=== PATIENT | male | born 1985 | race African-American/Black ===

== ENCOUNTER 2017-08-16 10:23 | Inpatient (IN) | payer OTHER ==
[~2017-08-16] VITALS: Ht 185.4 cm; Wt 142.5 kg
[~2017-08-16 10:23] MED LIST: ATIVAN0.5 MG PO; GABAPENTIN300 MG PO; HYDROCHLOROTH12.5 MG PO; HYDRODIURIL 112.5 M1 PO; HYDRODIURIL 112.5 MG PO; LIORESAL 10MG T10 MG PO; LISINOPRIL10 MG PO; MOTRIN 600 MG600 MG PO; NORVASC 10MG10 MG PO; PERCOCET 325 MG1 TA2 PO; QNASL80 MCG/Act NASB; ZITHROMAX TRI-500 MG PO
--- NOTE | 2017-08-16 11:01 | ED CARDIAC/CP/PALPITATIONS ---
History of Present Illness General Chief Complaint: Chest Pain Stated Complaint: CP Source: patient Exam Limitations: no limitations Vital Signs & Intake/Output Vital Signs & Intake/Output Vital Signs Date Time Temp Pulse Resp B/P B/P Pulse O2 O2 Flow FiO2 Mean Ox Delivery Rate 08/16 1358 98.4 116 20 162/115 08/16 1254 98.8 116 18 172/122 98 Room Air 08/16 1200 82 18 188/118 98 Room Air Room Air 08/16 1140 73 18 178/106 98 Room Air Room Air 08/16 1126 989 Room Air Room Air 08/16 1125 96.1 73 18 185/125 08/16 1120 96.1 130 20 213/140 08/16 1120 78 18 185/125 97 Room Air Room Air 08/16 1037 96.1 130 20 213/140 98 Room Air Allergies Coded Allergies: NO KNOWN ALLERGIES (10/13/14) Reconcile Medications Amlodipine (Norvasc 10MG) 10 MG TABLET 1 TAB PO DAILY HYPERTENSION Amlodipine (Norvasc 10MG) 10 MG TABLET 1 TAB PO QHS HYPERTENSION Baclofen (Lioresal) 10 MG TABLET 1 TAB PO TIDPRN PRN muscle strain Hydrochlorothiazide (Hydrodiuril 12.5 MG Tab) 12.5 MG CAPSULE 1 CAP PO DAILY HYPERTENSION Hydrochlorothiazide 12.5 MG CAPSULE 1 TAB PO DAILY HYPERTENSION Ibuprofen (Motrin 600 MG Tab) 600 MG TABLET 1 TAB PO Q6P PRN PAIN Lisinopril 10 MG TABLET 1 TAB PO DAILY HYPERTENSION Lisinopril 10 MG TABLET 1 TAB PO DAILY HYPERTENSION OXYCODONE HCL/ACETAMINOPHEN (Percocet 5-325 MG Tablet) 325 MG/5 MG TAB 1-2 TAB PO Q4-6 PRN PRN PAIN Triage Note: PT TO ED C/O HEART PALPITATIONS AND DIZZINESS SINCE LAST NIGHT. HAS NOT BEEN TAKING BP MEDS FOR AT LEAST 1 YEAR. BP 213/140. STATES HE WAS DRINKING HEAVILY UP UNTIL SATURDAY. C/O SLIGHT C/P. Triage Nurses Notes Reviewed? yes Onset: Abrupt Duration: day(s): (1) Timing: recent history Quality/Severity: moderate, severe Radiation: no radiation HPI: 32-year-old male comes into the emergency room for further evaluation of chest pain tightness shortness of breath and alcohol withdrawal. Patient reports that he has a history of alcohol withdrawal and alcohol withdrawal seizure. He is been drinking heavily again for the past month. He was sober for about a year. He denies any illicit drug use. He reports last night he started to experience heart palpitations and chest tightness and difficulty breathing. His symptoms got progressively worse. (Alexis Rivera) Past History Travel History Traveled to [place] past 21 day No Medical History Any Pertinent Medical History? 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 No (Alexis Rivera) Review of Systems Review of Systems Constitutional: Reports: no symptoms. EENTM: Reports: no symptoms. Respiratory: Reports: see HPI. Cardiovascular: Reports: see HPI. GI: Reports: no symptoms. Genitourinary: Reports: no symptoms. Musculoskeletal: Reports: no symptoms. Skin: Reports: no symptoms. Neurological/Psychological: Reports: see HPI. Hematologic/Endocrine: Reports: no symptoms. Immunologic/Allergic: Reports: no symptoms. All Other Systems: Reviewed and Negative (Alexis Rivera) Physical Exam Physical Exam General Appearance: well developed/nourished, alert, awake Head: atraumatic Eyes: Bilateral: normal appearance. Ears, Nose, Throat: normal ENT inspection, hearing grossly normal Neck: normal inspection Respiratory: normal breath sounds, no respiratory distress Cardiovascular: regular rate/rhythm, tachycardia Back: normal inspection Extremities: normal inspection Neurologic/Psych: awake, alert, oriented x 3 Skin: intact, normal color Core Measures ACS in differential dx? Yes CVA/TIA Diagnosis No Sepsis Present: No Sepsis Focused Exam Completed? No (Alexis Rivera) Progress Differential Diagnosis: AMI, aortic dissection, hyperthyroid, musculoskeletal pain, myocarditis, pancreatitis, pericarditis, pneumonia, pneumothorax, pulmonary embolism, PUD/GERD, respiratory failure, unstable angina Plan of Care: Orders Procedure Date/time Status Heart Healthy Diet 08/16 D Active ED Holding Orders 08/16 1415 Active Admit to inpatient 08/16 1415 Active Vital Signs 08/16 1415 Active Code Status 08/16 1415 Active CIWA 08/16 1101 Active URINE DRUGS OF ABUSE 08/16 1101 Active TROPONIN LEVEL 08/16 1101 Complete PARTIAL THROMBOPLASTIN TIME 08/16 1101 Complete PROTHROMBIN TIME 08/16 1101 Complete ETHANOL 08/16 1101 Complete D-DIMER 08/16 1101 Complete COMPREHENSIVE METABOLIC PANEL 08/16 1101 Complete CBC WITHOUT DIFFERENTIAL 08/16 1101 Complete EKG 08/16 1024 Active Current Medications Sig/Tasha Start time Last Medication Dose Stop Time Status Admin Hydrochlorothiazide 12.5 MG ONCE ONE 08/16 1430 UNVr (Hydrodiuril) 08/16 1431 Lisinopril 10 MG ONCE ONE 08/16 1430 UNVr (Prinivil) 08/16 1431 Amlodipine Besylate 10 MG ONCE ONE 08/16 1415 UNVr (Norvasc) 08/16 1416 Laboratory Tests 08/16/17 1105: Anion Gap 15, Estimated GFR > 60, BUN/Creatinine Ratio 12.0, Glucose 108 H, Calcium 9.0, Total Bilirubin 2.7 H, AST 108 H, ALT 136 H, Alkaline Phosphatase 101, Troponin I < 0.01, Total Protein 9.4 H, Albumin 4.6, Globulin 4.8 H, Albumin/Globulin Ratio 1.0 L, PT 12.3, INR 1.13, APTT 28, D-Dimer High Sensitivty 253 H, CBC w Diff NO MAN DIFF REQ, RBC 5.62, MCV 85.6, MCH 29.6, MCHC 34.6, RDW 12.3, MPV 9.2, Gran % 81.9 H, Lymphocytes % 11.2 L, Monocytes % 5.4, Eosinophils % 0.8, Basophils % 0.7, Absolute Granulocytes 4.2, Absolute Lymphocytes 0.6 L, Absolute Monocytes 0.3, Absolute Eosinophils 0, Absolute Basophils 0, Serum Alcohol < 10.0 Diagnostic Imaging: Viewed by Me: Radiology Read, CT Scan. Discussed w/RAD: Radiology Read, CT Scan. Radiology Impression: PATIENT: KATHI RODRIGUEZ PRESENT AGE: 32 PATIENT ACCOUNT NO: [id number] : 86 LOCATION: [facility] ORDERING PHYSICIAN: Alexis MAGAÑA SERVICE DATE: 08/16/17 EXAM TYPE : CAT - CTA CHEST-PULMONARY EMBOLISM EXAMINATION: CT ANGIOGRAM OF THE CHEST WITH AND WITHOUT CONTRAST (CT PULMONARY ANGIOGRAM FOR PE) CLINICAL INFORMATION: Shortness of breath, tachycardia. Question PE. COMPARISON: Chest x-ray from TECHNIQUE: Prior to contrast administration, noncontrast localization images were obtained. Subsequently, multidetector volumetric imaging was performed from the thoracic inlet to below the diaphragms following the administration of 95 mL Optiray 320 intravenous contrast. No contrast reaction reported. Sagittal, coronal, and MIP oblique sagittal reformatted images were obtained on the CT workstation, uploaded to PACS, and reviewed. Total exam dose- length product 595 mGy-cm. FINDINGS: QUALITY OF STUDY/CONTRAST BOLUS: Satisfactory PULMONARY ARTERIES: No central or segmental pulmonary emboli. THORACIC AORTA: No aneurysm or dissection. LUNG: No consolidation. There is mild breathing artifact. There is a 3 mm pulmonary nodule in the lingula (series 2 image 323). In the left upper lobe there is an oval 9 mm density which appears closely connected to a subsegmental pulmonary artery and a subsegmental pulmonary vein (see for example series 2 images 250-265). This is similar attenuation to the vasculature, and no definitive calcification is visualized on prior chest x-ray. There is a punctate calcified granuloma in the right lower lobe. PLEURA: No pleural effusion or pneumothorax. MEDIASTINUM: Normal heart size. No pericardial effusion. No hilar or mediastinal lymphadenopathy. No evidence of septal bowing or right heart strain. CHEST WALL/AXILLA: No axillary or internal mammary lymphadenopathy. OSSEOUS STRUCTURES: No acute or suspicious osseous abnormality. UPPER ABDOMEN: Unremarkable. No reflux of contrast into the hepatic veins to suggest elevated right heart pressures. IMPRESSION: No evidence of central or segmental pulmonary embolism. A 9 mm dense structure in the periphery of the left upper lobe, closely opposed to a subsegmental pulmonary artery and vein. This may reflect a small arteriovenous malformation; the differential would include a coarse calcification, although no calcification is visualized on chest x-ray. Suggest correlation with noncontrast CT to conclusively differentiate between these two possibilities. A calcified granuloma in the right lower lobe. A 3 mm noncalcified nodule in the lingula. VTE: negative DICTATED BY: Walter Parnell MD DATE/TIME DICTATED:08/16/171300 QUALITY SUPERVISOR:JENNIFER DATE/TIME TRANSCRIBED:08/16/171300 CONFIDENTIAL, DO NOT COPY WITHOUT APPROPRIATE AUTHORIZATION. <Electronically signed in Other Vendor System> SIGNED BY: Walter Parnell MD 08/16/17 1320, PATIENT: KATHI RODRIGUEZ PRESENT AGE: 32 PATIENT ACCOUNT NO: [id number] : 86 LOCATION: [facility] ORDERING PHYSICIAN: Alexis MAGAÑA SERVICE DATE: 08/16/17 EXAM TYPE: RAD - XRY-CHEST XRAY, TWO VIEWS EXAMINATION: XR CHEST CLINICAL INFORMATION: Chest pain COMPARISON: Chest x-ray most recent prior dated 10/21/2005 TECHNIQUE: 2 views of the chest were obtained. FINDINGS: Low lung volumes. No acute airspace disease. Cardiomediastinal silhouette is within normal limits. Bony thorax is intact. IMPRESSION: No acute pulmonary disease. DICTATED BY: Rosario Fox MD DATE/TIME DICTATED:08/16/171208 QUALITY SUPERVISOR:JENNIFER DATE/TIME TRANSCRIBED:1208 CONFIDENTIAL, DO NOT COPY WITHOUT APPROPRIATE AUTHORIZATION. < Electronically signed in Other Vendor System> SIGNED BY: Rosario Fox MD 08/16/17 1214 Initial ED EKG: normal sinus rhythm, rate (118), nonspecific ST T wave chg (Alexis Rivera) Departure Departure Disposition: STILL A PATIENT Condition: Stable Clinical Impression Primary Impression: Alcohol withdrawal Secondary Impressions: Chest pain syndrome, Hypertensive urgency Referrals: Patient Has No Primary Care Dr (PCP/Family) Departure Forms: Customer Survey General Discharge Information Admission Note Spoke With: Gus Ren MD Documentation of Exam: Documentation of any treatments & extenuating circumstances including Concerns Regarding Discharge (functional status, medication knowledge or non-compliance, living conditions, etc.) that warrant an admission rather than observation: Patient will require cardiac telemetry. Serial troponins. IV Ativan. Blood pressure control. Possibly cardiac consultation. High risk. ciwa scores 14 and 12. History of alcohol withdrawal seizure. Medically not safe for discharge. Patient will require greater than 72 hours of care. (Alexis Rivera) PA/SENIOR LINUX SYSTEMS ADMINISTRATOR Co-Sign Statement Statement: ED Attending supervision documentation- [X] I saw and evaluated the patient. I have also reviewed all the pertinent lab results and diagnostic results. I agree with the findings and the plan of care as documented in the PA's/SENIOR LINUX SYSTEMS ADMINISTRATOR's documentation. [X] I have reviewed the ED Record and agree with the PA's/SENIOR LINUX SYSTEMS ADMINISTRATOR's documentation. [] Additions or exceptions (if any) to the PAs/SENIOR LINUX SYSTEMS ADMINISTRATOR's note and plan are summarized below: [Patient presents to the emergency department requesting alcohol detox. Patient found to be hypertensive. Patient states that he has not taken his antihypertensives in over a year. Patient has an elevated CIWA score. Patient will need close blood pressure monitoring. He does have intermittent chest pain so he should have a cardiology consultation.] (Landy MEEK,Samir Rod) Critical Care Note Critical Care Note Critical Care Time: 30-74 min (45) (Alexis Rivera)
[2017-08-16 11:20] VITALS: BP 213/140
[2017-08-16 11:31] LABS: ABSOLUTE BASOPHIL COUNT 0 /CUMM (0.0-0.2); ABSOLUTE EOSINOPHIL COUNT 0 /CUMM (0.0-0.7); ABSOLUTE GRANULOCYTE CT 4.2 /CUMM (1.4-6.5); ABSOLUTE LYMPH COUNT 0.6 /CUMM (1.2-3.4); ABSOLUTE MONOCYTE COUNT 0.3 /CUMM (0.10-0.60); BASOPHIL % 0.7 % (0.0-2.0); EOSINOPHIL % 0.8 % (0-5); GRANULOCYTE % 81.9 % (42.2-75.2); HEMATOCRIT 48.2 % (42-52); MEAN CORPUSCULAR HGB 29.6 PG (27.0-31.0); MEAN CORPUSCULAR HGB CONC 34.6 G/DL (33.0-37.0); MEAN CORPUSCULAR VOLUME 85.6 FL (80.0-94.0); MEAN PLATELET VOLUME 9.2 FL (7.4-10.4); PLATELET COUNT 207 /CUMM (130-400); RBC DISTRIBUTION WIDTH 12.3 % (11.5-14.5); RED BLOOD CELL CT 5.62 /CUMM (4.70-6.10); WHITE BLOOD CELL COUNT 5.1 /CUMM (4.8-10.8)
[2017-08-16 11:36] LABS: PT 12.3 SEC (9.4-12.5); PTT 28 SEC (25-37)
--- NOTE | 2017-08-16 12:14 | RADIOLOGY REPORT ---
EXAMINATION: XR CHEST CLINICAL INFORMATION: Chest pain COMPARISON: Chest x-ray most recent prior dated 10/21/2005 TECHNIQUE: 2 views of the chest were obtained. FINDINGS: Low lung volumes. No acute airspace disease. Cardiomediastinal silhouette is within normal limits. Bony thorax is intact. IMPRESSION: No acute pulmonary disease.
--- NOTE | 2017-08-16 13:20 | CT SCAN REPORT ---
EXAMINATION: CT ANGIOGRAM OF THE CHEST WITH AND WITHOUT CONTRAST (CT PULMONARY ANGIOGRAM FOR PE) CLINICAL INFORMATION: Shortness of breath, tachycardia. Question PE. COMPARISON: Chest x-ray from 08/16/2017 TECHNIQUE: Prior to contrast administration, noncontrast localization images were obtained. Subsequently, multidetector volumetric imaging was performed from the thoracic inlet to below the diaphragms following the administration of 95 mL Optiray 320 intravenous contrast. No contrast reaction reported. Sagittal, coronal, and MIP oblique sagittal reformatted images were obtained on the CT workstation, uploaded to PACS, and reviewed. Total exam dose-length product 595 mGy-cm. FINDINGS: QUALITY OF STUDY/CONTRAST BOLUS: Satisfactory PULMONARY ARTERIES: No central or segmental pulmonary emboli. THORACIC AORTA: No aneurysm or dissection. LUNG: No consolidation. There is mild breathing artifact. There is a 3 mm pulmonary nodule in the lingula (series 2 image 323). In the left upper lobe there is an oval 9 mm density which appears closely connected to a subsegmental pulmonary artery and a subsegmental pulmonary vein (see for example series 2 images 250-265). This is similar attenuation to the vasculature, and no definitive calcification is visualized on prior chest x-ray. There is a punctate calcified granuloma in the right lower lobe. PLEURA: No pleural effusion or pneumothorax. MEDIASTINUM: Normal heart size. No pericardial effusion. No hilar or mediastinal lymphadenopathy. No evidence of septal bowing or right heart strain. CHEST WALL/AXILLA: No axillary or internal mammary lymphadenopathy. OSSEOUS STRUCTURES: No acute or suspicious osseous abnormality. UPPER ABDOMEN: Unremarkable. No reflux of contrast into the hepatic veins to suggest elevated right heart pressures. IMPRESSION: No evidence of central or segmental pulmonary embolism. A 9 mm dense structure in the periphery of the left upper lobe, closely opposed to a subsegmental pulmonary artery and vein. This may reflect a small arteriovenous malformation; the differential would include a coarse calcification, although no calcification is visualized on chest x-ray. Suggest correlation with noncontrast CT to conclusively differentiate between these two possibilities. A calcified granuloma in the right lower lobe. A 3 mm noncalcified nodule in the lingula. VTE: negative
[2017-08-16 13:58] VITALS: BP 162/115
--- NOTE | 2017-08-16 14:41 | History & Physical ---
[facility] 1436: General Information and HPI MD Statement: I have seen and personally examined KATHI RODRIGUEZ and documented this H&P. The patient is a 32 year old M who presented with a patient stated chief complaint of chest pain, palpitation, shortness of breath []. Source of Information: patient, old records Exam Limitations: no limitations History of Present Illness: 32 YO M ex-smoker (quit 5 yrs back, 1pack/d) with past medical history of hypertension noncompliant to medication, alcohol abuse, obstructive sleep apnea and anxiety came to the ED with chief complaint of chest tightness, palpitation and shortness of breath since last night. Patient reported that he was in his usual state of health since last night when he suddenly noticed having chest tightness 7/10 in the center of the chest, continuous, radiating to both arms, no aggravating or relieving factors associated with palpitations and intermittent shortness of breath. According to patient he couldn't sleep last night because of chest tightness and palpitations. This morning he also reported having sweating and chills. Patient denied any fever, sick contacts, loss of consciousness, tick bite, cough , sputum, exertional dyspnea, pain during exertion, orthopnea, trauma to chest, abdominal pain, constipation, diarrhea and dysuria. Last time patient was admitted in [facility] in 2013 for alcohol detox after that he remained sober for 1 year but again started to drink. According to patient he is drinking 1 rump everyday. According to patient he was admitted he was admitted with alcohol induced seizures in the past. He never been intubated. According to the patient he is not taking any hypertension medications for last 1 year and he is not seeing any primary care physician for long time. He attributes his chest pain to anxiety and stress related to work. ED course: Vitals: Temperature 96.1, blood pressure 213/140, pulse 130, respiratory rate 20 , oxygen saturation 98% room air Labs: WBC count 5.1, hemoglobin 16.6, hematocrit 48.2, platelet count 27, sodium 136, potassium 3.9, BUN 12, creatinine 1.0, AST 108, ALT 136, glucose 108, calcium 9.0, total bilirubin 2.7, troponin less than 0.01, total protein 9.4, albumin 4.6, globulin 4.8, albumin/creatinine ratio 1.0, INR 1.13, d-dimer 253 Allergies/Medications Allergies: Coded Allergies: NO KNOWN ALLERGIES (10/13/14) Home Med list Fluticasone Propionate 50 MCG/ACTUATION SPRAY.SUSP 2 SPRAY NASB DAILY PRN ALLERGIES (Reported) Multiple Vitamin (Multivitamins) 1 EACH TABLET 1 TAB PO DAILY SUPPLEMENT ( Reported) Past History Travel History Traveled to [place] past 21 day No Medical History Neurological: NONE EENT: sinusitis Cardiovascular: hypertension Respiratory: obstructive sleep apnea Gastrointestinal: NONE Hepatic: NONE Renal: NONE Musculoskeletal: NONE Psychiatric: anxiety, ALCOHOL DEPENDENCE Endocrine: NONE Blood Disorders: NONE Cancer(s): NONE THERMODYNAMICIST/Reproductive: NONE History of MRSA: No History of VRE: No History of CDIFF: No Influenza Vaccine: 12/29/11 Surgical History Surgical History: TONSILLECTOMY Past Family/Social History Family History Relations & Conditions if any Relation not specified for: Family history not obtainable due to adoption Psychosocial History ETOH Use: heavy use Illicit Drug Use: denies illicit drug use Review of Systems Review of Systems Constitutional: Reports: chills. Denies: fever, weakness. EENTM: Reports: no symptoms. Cardiovascular: Reports: chest pain, palpitations. Denies: syncope. Respiratory: Reports: short of breath. Denies: cough, orthopnea, sputum production. GI: Denies: abdominal pain, constipation, diarrhea, nausea. Genitourinary: Reports: no symptoms. Musculoskeletal: Reports: no symptoms. Neurological/Psychological: Reports: no symptoms. Exam & Diagnostic Data Last 24 Hrs of Vital Signs/I&O Vital Signs Date Time Temp Pulse Resp B/P B/P Pulse O2 O2 Flow FiO2 Mean Ox Delivery Rate 08/16 1358 98.4 116 20 162/115 08/16 1254 98.8 116 18 172/122 98 Room Air 08/16 1200 82 18 188/118 98 Room Air Room Air 08/16 1140 73 18 178/106 98 Room Air Room Air 08/16 1126 989 Room Air Room Air 08/16 1125 96.1 73 18 185/125 08/16 1120 96.1 130 20 213/140 08/16 1120 78 18 185/125 97 Room Air Room Air 08/16 1037 96.1 130 20 213/140 98 Room Air Intake & Output 08/16 1600 08/16 0800 04/20 0000 Intake Total Output Total Balance Patient 330 lb Weight Weight Estimated Measurement Method Physical Exam General Appearance Alert, Oriented X3, Cooperative Skin No Rashes Skin Temp/Moisture Exam: Warm/Dry Sepsis Skin Exam (color): Normal for Ethnicity HEENT Atraumatic, PERRLA, EOMI Neck Supple Cardiovascular Normal S1, Normal S2 Lungs Clear to Auscultation Abdomen Soft, No Tenderness Neurological Normal Speech, Strength at 5/5 X4 Ext, Normal Tone, Sensation Intact Extremities No Edema Last 24 Hrs of Labs/Sage: Laboratory Tests 08/16/17 1105: Anion Gap 15, Estimated GFR > 60, BUN/Creatinine Ratio 12.0, Glucose 108 H, Calcium 9.0, Total Bilirubin 2.7 H, AST 108 H, ALT 136 H, Alkaline Phosphatase 101, Troponin I < 0.01, Total Protein 9.4 H, Albumin 4.6, Globulin 4.8 H, Albumin/Globulin Ratio 1.0 L, PT 12.3, INR 1.13, APTT 28, D-Dimer High Sensitivty 253 H, CBC w Diff NO MAN DIFF REQ, RBC 5.62, MCV 85.6, MCH 29.6, MCHC 34.6, RDW 12.3, MPV 9.2, Gran % 81.9 H, Lymphocytes % 11.2 L, Monocytes % 5.4, Eosinophils % 0.8, Basophils % 0.7, Absolute Granulocytes 4.2, Absolute Lymphocytes 0.6 L, Absolute Monocytes 0.3, Absolute Eosinophils 0, Absolute Basophils 0, Serum Alcohol < 10.0 Assessment/Plan Assessment: 32 YO M ex-smoker (quit 5 yrs back, 1pack/d) with past medical history of hypertension noncompliant to medication, alcohol abuse, obstructive sleep apnea and anxiety came to the ED with chief complaint of chest tightness, palpitation and shortness of breath since last night. We will admit the patient to telemetry floor for following problems: Chest pain: -We will do serial Trop and EKG to rule out any ischemic cardiac injury. -Monitor him on telemetry floor for any arrhythmias or blocks. -Start aspirin and atorvastatin -Check TSH, free T4. -Cardiology consult -Echocardiogram in a.m. Hypertensive urgency: -We will continue his amlodipine, hydrochlorothiazide and lisinopril -Will not drop his blood pressure more than 25% from presentation. -Monitor vitals Alcohol withdrawal: -We'll treat him with CIWA protocol -Ativan 2 mg every 6 hourly -Supplement thiamine, vit Vitamin B12 and folic acid Transaminitis: -Probably due to alcohol induced -Monitor LFTs -Ultrasound right upper quadrant if needed. DVT prophylaxis: Mechanical and subcutaneous heparin CODE STATUS: Full code As Ranked By This Provider Problem List: 1. Hypertensive urgency 2. Transaminitis 3. Alcohol withdrawal Core Measures/Misc (01/13) Acute Coronary Syndrome ACS Diagnosis: No Congestive Heart Failure Congestive Heart Failure Diagnosis No Cerebrovascular Accident CVA/TIA Diagnosis: No VTE (View Protocol) VTE Risk Factors Other No Mechanical VTE Prophylaxis d/t N/A MechProphylax Ordered No VTE Pharm Prophylaxis d/t NA PharmProphylax ordered Sepsis (View protocol) Sepsis Present: No Dickson Espinoza MD 08/16/17 1444: Resident Review Statement Other Findings: History of Present Illness 32 year old man with past medical history of hypertension and alcohol abuse seen for evaluation of chest tightness and palpitations. Patient reports he was watching television last evening when around 7-8 PM he developed sudden onset heart palpitations with associated chest "tightness" characterize as a 7-8/10 pain with occasional radiation to his bilateral arms and associated cold sweats, lightheadedness, blurred vision, abdominal cramping, headache, and shortness breath. The pain was waxing/waning without any aggravating or alleviating factors. He had decreased oral intake since Saturday because of feeling ill. He reports a heavy alcohol history drinking up to "one bottle of from" per day with his last drink on Saturday. He is reportedly supposed to be on "blood pressure medication" but hasn't taken it in "a long time". Review of systems He otherwise denies any nausea, vomiting, or bowel/bladder complaints. Past medical history-as above, additionally seasonal allergies Allergies - NKDA Medications -Flonase, reportedly supposed to be on lisinopril/Norvasc/HCTZ hypertension Surgery - Tonsillectomy 5 years ago Family history -patient is adopted Social history Patient reports being admitted to the hospital for alcohol detox approximately 4 years ago; he did not require admission to the ICU or an Ativan drip. He denies history of alcohol withdrawal seizures. He was reportedly clean for several years until he started drinking heavily about 2 months ago now drinking about one bottle of from per day. 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 He lives at home with his 3 children and reports a good environment. Currently denies any SI/HI. Patient is a previous smoker of one pack per day quitting about 5 years ago. Objective Vital signs -Temp 96.1-98.4, HR 73-1:30, RR 18-20, SBP 162-213, O2 97-98% on room air Physical exam -Gen.: Well-developed, well-nourished young -[place] man in no acute distress -HEENT: NCAT, PERRLA, EOMI, anicteric sclera, moist mucous membranes -Neck: Supple, no JVD or carotid bruit, trachea midline -Cardio: Normal S1/S2 without murmurs/gallops/rubs; regular rate and rhythm -Pulmonary: Clear to auscultation bilaterally -Abdomen: Soft, nontender, nondistended, bowel sounds intact -Neuro: Awake and alert, cranial nerves II through XII grossly intact, strength 5/54, speech/sensation/coordination/gait intact, face symmetric -Extremities: Normal pulses Labs/imaging/studies -CBC: WBC 5.1, hemoglobin 16.6, hematocrit 48.2, platelet 207 -BMP: Sodium 136, potassium 3.9, chloride 92, CO2 29, urea 12, creatinine 1.0, anion gap 15, glucose 108 -LFT: Total bilirubin 2.7, AST 108, ALT 136, ALP 101 -Miscellaneous never: D-dimer 253, INR 1.13, EtOH <10,troponin I <0.01 -EKG: Sinus tachycardia with PACs -CXR: No acute pulmonary disease -CTA with PE protocol: * No evidence of central or segmental pulmonary embolism. * A 9 mm dense structure in the periphery of the left upper lobe, closely opposed to a subsegmental pulmonary artery and vein. This may reflect a small arteriovenous malformation; the differential would include a coarse calcification, although no calcification is visualized on chest x-ray. Suggest correlation with noncontrast CT to conclusively differentiate between these two possibilities. * A calcified granuloma in the right lower lobe. A 3 mm noncalcified nodule in the lingula. Assessment 32-year-old man with history of EtOH withdrawal/abuse and hypertension seen for evaluation of acute onset heart palpitations with chest pain. It is unclear why patient had decreased oral intake and felt "ill was "over the past couple of days causing him to stop drinking. It is possible that patient's heart palpitations and symptoms are due to EtOH withdrawal however he has no tremor or other obvious signs of withdrawal other than hypertension. Patient is noncompliant with his antihypertensive regimen and presents with hypertensive urgency without any neurologic signs or end organ damage. Patient is to be admitted to the telemetry floor for cardiology consult, serial troponin/EKG, and telemetry monitoring. He is to be continued on a standing dose of oral Ativan with additional doses as needed. Problem List -Chest pain with palpitations -EtOH withdrawal / dependence -Sinus tachycardia -Transaminitis -Hypertensive Urgency -History of Hypertension -Anxiety / Depression Plan -Admit to telemetry -Telemetry monitoring -CIWA -Ativan 2 mg PO Q6H -Ativan PRN per CIWA -Thiamine / Folate / Multivitamin -Amlodipine 10 mg by mouth daily -Lisinopril 10 mg by mouth daily -Hydrochlorothiazide 12.5 mg by mouth daily -Cardiology consult for chest pain -Social work consult for alcohol abuse -Check magnesium, TSHR -Trend troponin/EKG until peak or 3 negative sets -Pain control with acetaminophen -Regular diet -DVT prophylaxis with subcutaneous heparin -Full code
[2017-08-16 15:24] VITALS: BP 170/117
[2017-08-16] MEDS ORDERED: MULTIVITAMINS1 EAC9 PO (15:32)
[2017-08-16] MEDS ORDERED: FLUTICASONE PRO16 GM NASB (15:32)
--- NOTE | 2017-08-16 15:45 | Admission Certification ---
Admission Certification Certification Statement - As attending physician, I certify that at the time of - admission, based on clinical presentation, severity of - symptoms, need for further diagnostic testing and - therapeutic interventions, and risk of adverse outcomes - without in-hospital treatment, in my clinical assessment, - this patient requires an acute hospital stay for a minimum - of two nights or longer. I have also considered psychsocial - factors such as support system, advanced age, financial - issues, cognitive issues, and failed out-patient treatments, - past re-admission history, safety of patient, and lack of - compliance as applicable. Specific rationale supporting this admission is: Chest pain and alcohol withdrawal
--- NOTE | 2017-08-16 16:06 | PN- Att Addend ---
Attending Addendum Attending Brief Note Patient seen and examined. Plan of care discussed with the medical team and the patient. Available lab work and radiology test reports were reviewed. In summary this is a 32-year-old male alcoholic with past medical history of hypertension noncompliant to medication, alcohol abuse, obstructive sleep apnea and anxiety came to the ED with symptoms of for feeling no worse, sweating, chest tightness with radiation to right arm. In ED he was found to have elevated blood pressure. He was given Ativan which helped him calm down and also the blood pressure came down. Exam: General: Patient awake alert oriented without any distress CVS: S1 plus S2 without any murmur or gallops Chest: Few scattered crepitation without any wheeze. There is no respiratory distress. 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 SPECIALIST: Awake alert oriented without any focal neuro deficit and follows commands appropriately Extremities: No edema; no clubbing or cyanosis noted Assessment * Alcohol abuse * Alcohol withdrawal * Transaminitis and elevated bilirubin likely due to alcohol abuse * Sleep apnea * Rule out AK and chest pain Plan * Admit to telemetry * Start Ativan 2 mg by mouth every 6 and CIWA protocol * Start aspirin and Lipitor; rule out AK protocol; a pericardial the consult repeat EKG; Vital Signs Date Time Temp Pulse Resp B/P B/P Pulse O2 O2 Flow FiO2 Mean Ox Delivery Rate 08/16 1524 110 20 170/117 99 Room Air 08/16 1430 98.4 116 20 162/115 08/16 1430 98.4 116 20 162/115 08/16 1358 98.4 116 20 162/115 08/16 1254 98.8 116 18 172/122 98 Room Air 08/16 1200 82 18 188/118 98 Room Air Room Air 08/16 1140 73 18 178/106 98 Room Air Room Air 08/16 1126 989 Room Air Room Air 08/16 1125 96.1 73 18 185/125 08/16 1120 96.1 130 20 213/140 08/16 1120 78 18 185/125 97 Room Air Room Air 08/16 1037 96.1 130 20 213/140 98 Room Air Last 24 Hours I&Os 08/16 1600 08/16 0800 08/16 0000 Intake Total 100 Output Total Balance 100 Intake, Oral 100 Patient 330 lb Weight Weight Estimated Measurement Method Laboratory Tests 08/16/17 1105: Anion Gap 15, Estimated GFR > 60, BUN/Creatinine Ratio 12.0, Glucose 108 H, Calcium 9.0, Magnesium Pending, Total Bilirubin 2.7 H, AST 108 H, ALT 136 H, Alkaline Phosphatase 101, Troponin I < 0.01, Total Protein 9.4 H, Albumin 4.6, Globulin 4.8 H, Albumin/Globulin Ratio 1.0 L, TSH &T3 &Free T4 Intrp Pending, PT 12.3, INR 1.13, APTT 28, D-Dimer High Sensitivty 253 H, CBC w Diff NO MAN DIFF REQ, RBC 5.62, MCV 85.6, MCH 29.6, MCHC 34.6, RDW 12.3, MPV 9.2, Gran % 81.9 H, Lymphocytes % 11.2 L, Monocytes % 5.4, Eosinophils % 0.8, Basophils % 0.7, Absolute Granulocytes 4.2, Absolute Lymphocytes 0.6 L, Absolute Monocytes 0.3, Absolute Eosinophils 0, Absolute Basophils 0, Serum Alcohol < 10.0 Orders Procedure Date/time Status MAGNESIUM 08/17 0600 Active CBC WITHOUT DIFFERENTIAL 08/17 0600 Active BASIC ELECTROLYTES PLUS BUN&CR 08/17 0600 Active Heart Healthy Diet 08/16 D Active TROPONIN LEVEL 08/16 2300 Active EKG 08/16 2300 Active TROPONIN LEVEL 08/16 1700 Active EKG 08/16 1700 Active Pathway - chart 08/16 1542 Active House Staff 08/16 1542 Active SOCIAL WORK CONSULT 08/16 1542 Active Intake & Output 08/16 1443 Active Patient Data 08/16 1422 Active ED Holding Orders 08/16 1415 Active Admit to inpatient 08/16 1415 Active Vital Signs 08/16 1415 Active Code Status 08/16 1415 Active TSH REFLEX 08/16 1105 Active MAGNESIUM 08/16 1105 Active CIWA 08/16 1101 Active URINE DRUGS OF ABUSE 08/16 1101 Active TROPONIN LEVEL 08/16 1101 Active PARTIAL THROMBOPLASTIN TIME 08/16 1101 Complete PROTHROMBIN TIME 08/16 1101 Complete ETHANOL 08/16 1101 Active D-DIMER 08/16 1101 Complete COMPREHENSIVE METABOLIC PANEL 08/16 1101 Active CBC WITHOUT DIFFERENTIAL 08/16 1101 Complete EKG 08/16 1024 Active Lab Add-on Test 08/16 UNK Active VTE Mechanical Prophylaxis 08/16 UNK Active Activity/Ambulation 08/16 UNK Active His EKG did not show any acute ST segment elevation. few PVCs were noted. CTA No evidence of central or segmental pulmonary embolism. A 9 mm dense structure in the periphery of the left upper lobe, closely opposed to a subsegmental pulmonary artery and vein. This may reflect a small arteriovenous malformation; the differential would include a coarse calcification, although no calcification is visualized on chest x-ray. Suggest correlation with noncontrast CT to conclusively differentiate between these two possibilities. A calcified granuloma in the right lower lobe. A 3 mm noncalcified nodule in the lingula. VTE: negative CXR- no acute process
--- NOTE | 2017-08-16 17:17 | PN- Student ---
Subjective Subjective: HPI: Between 7:00-8:00pm of the day [employer] patient woke up in the middle of the night with sweating, palpitations, and chest tightness. Pain was 7/10, located in the middle of the chest, constant with radiation to both arms. He also mentioned the feeling of having the heart in the throat. Patient reported having this symptoms 4 years ago for which he was told to follow up with a corner brace block machine operator but he did not. Patient has an history of alcohol abuse for which he is been trying to quit. He was sober for couple of years, but started drinking again about 2 month ago because of stress. 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 At this point patient mentioned drinking a bottle of rum everyday. Hospital course: Patient was admitted with a chief complain of chest pain with radiation to both arms. In ED he was found to have elevated blood pressure. He was given Ativan which helped him calm down and also the blood pressure came down. PMHX: alcohol abuse PSHx: tonsilectomy (2012) SHx: past-smoker of 1 pack a day that quit 5 years ago, drinker of one bottle of rum a day Allergies: NKA Objective Objective: Vitals: T= 98.4 HR= 116 RR= 20 BP= 162-213/106-140 PE: General= Patient alert, awake, and oriented without any distress HEENT= normocephalic, atraumatic, non-icteric sclera, moist oral mucosa CVS= normal S1 and S2 without rub or gallops . Abdomen= Soft non-tender, bowel sound present, no guarding or rebound Extremities= No edema, no clubbing or cyanosis Results Results: Laboratory Tests 08/16/17 1105: Anion Gap 15, Estimated GFR > 60, BUN/Creatinine Ratio 12.0, Glucose 108 H, Calcium 9.0, Magnesium 1.2 L, Total Bilirubin 2.7 H, AST 108 H, ALT 136 H, Alkaline Phosphatase 101, Troponin I < 0.01, Total Protein 9.4 H, Albumin 4.6, Globulin 4.8 H, Albumin/Globulin Ratio 1.0 L, Free T4 1.96, Total T3 Pending, TSH &T3 &Free T4 Intrp 6.370 H, PT 12.3, INR 1.13, APTT 28, D-Dimer High Sensitivty 253 H, CBC w Diff NO MAN DIFF REQ, RBC 5.62, MCV 85.6, MCH 29.6, MCHC 34.6, RDW 12.3, MPV 9.2, Gran % 81.9 H, Lymphocytes % 11.2 L, Monocytes % 5.4, Eosinophils % 0.8, Basophils % 0.7, Absolute Granulocytes 4.2, Absolute Lymphocytes 0.6 L, Absolute Monocytes 0.3, Absolute Eosinophils 0, Absolute Basophils 0, Serum Alcohol < 10.0 Assessment/Plan Assessment: 32 y/o M with past medical history of hypertension noncompliant to medication, alcohol abuse, obstructive sleep apnea and anxiety who came to the ED with chief complaint of chest tightness, palpitation and shortness of breath since last night. EKG showed sinus tachy. Troponin are <0.01. CXR did not showed any acute signs. CTA was performed which did not showed any evidence of PE. At this point with an negative troponin, ACS cannot be ruled out. Patient admitted to [facility] due to chest pain in the setting of possible ACS. Plan: Chest pain -F/U Trop and EKG to rule out any ischemia -Start aspirin and atorvastatin -Check TSH, free T4 -Cardiology consult -Echocardiogram in a.m. Hypertensive urgency -Cont. amlodipine, hydrochlorothiazide and lisinopril -Will not drop his blood pressure more than 25% from presentation -Monitor vitals Alcohol withdrawal -[facility] protocol -Ativan 2 mg Q6 -Supplement thiamine, vit Vitamin B12 and folic acid Transaminitis -Probably due to alcohol abuse -Monitor LFTs -US the abdomen DVT prophylaxis: Mechanical and subcutaneous heparin
--- NOTE | 2017-08-16 18:25 | Cons- Cardiology ---
General Information and HPI Consulting Request Date of Consult: 08/16/17 Requested By: Jay Henry MD Reason for Consult: Palpitations and chest pain. Source of Information: patient Exam Limitations: no limitations History of Present Illness: Mr. Eddie fang is a 32-year-old male with a history of former tobacco use, obesity, untreated obstructive sleep apnea, and untreated hypertension who presented to the ED earlier today while withdrawing from EtOH intoxication. He states that he had been sober until stress precipitated EtOH use which has been heavy since last Saturday (08/09/2017) until this past Saturday (08/14/2017) when he stopped drinking. evening he states that he began to feel "the effects" and experienced disorientation, cold sweats, and palpitations followed by "crushing", severe ( "10/10"), anterior chest discomfort with radiation down his arms, with associated diaphoresis and shortness of breath. Approximately 30 such episodes occurred over the following days lasting up to 10 minutes per episode. Several years back he had similar symptoms following EtOH withdrawal, but states he never had any type of noninvasive or invasive cardiovascular evaluation. He denies any history of dyslipidemia, diabetes mellitus, and is unaware of his family history as he and his siblings are all adopted. Allergies/Medications Allergies: Coded Allergies: NO KNOWN ALLERGIES (10/13/14) Home Med List: Fluticasone Propionate 50 MCG/ACTUATION SPRAY.SUSP 2 SPRAY NASB DAILY PRN ALLERGIES (Reported) Multiple Vitamin (Multivitamins) 1 EACH TABLET 1 TAB PO DAILY SUPPLEMENT ( Reported) Review of Systems Review of Systems: A 14 point system review was obtained and was noncontributory, other than as above. 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8 116 18 172/122 98 Room Air 08/16 1200 82 18 188/118 98 Room Air Room Air 08/16 1140 73 18 178/106 98 Room Air Room Air 08/16 1126 989 Room Air Room Air 08/16 1125 96.1 73 18 185/125 08/16 1120 96.1 130 20 213/140 08/16 1120 78 18 185/125 97 Room Air Room Air 08/16 1037 96.1 130 20 213/140 98 Room Air Intake & Output 08/16 1600 08/16 0800 08/16 0000 08/15 1600 08/15 0800 08/15 0000 Intake Total 100 Output Total Balance 100 Intake, Oral 100 Patient 330 lb Weight Weight Estimated Measurement Method Physical Exam: Well developed, obese male in no acute distress. Vital signs: See above. HEENT: Normocephalic, atraumatic, EOMI, moist mucous membranes. Neck: No JVD, no bruits. Lungs: Clear to auscultation bilaterally. Heart: S1, S2 with no murmur, gallop, or rub. PMI not well felt. Abdomen: Soft, nontender, positive bowel sounds. Extremities: No edema. Labs/Sage Results: Laboratory Tests 08/16 08/16 1735 1105 Chemistry Sodium (137 - 145 mmol/L) 136 L Potassium (3.5 - 5.1 mmol/L) 3.9 Chloride (98 - 107 mmol/L) 92 L Carbon Dioxide (22 - 30 mmol/L) 29 Anion Gap (5 - 16) 15 BUN (9 - 20 mg/dL) 12 Creatinine (0.7 - 1.2 mg/dL) 1.0 Estimated GFR (>60 ml/min) > 60 BUN/Creatinine Ratio (7 - 25 %) 12.0 Glucose (65 - 99 mg/dL) 108 H Calcium (8.4 - 10.2 mg/dL) 9.0 Magnesium (1.6 - 2.3 mg/dL) 1.2 L Total Bilirubin (0.2 - 1.3 mg/dL) 2.7 H AST (17 - 59 U/L) 108 H ALT (21 - 72 U/L) 136 H Alkaline Phosphatase (< 127 U/L) 101 Troponin I (<0.11 ng/ml) Pending < 0.01 Total Protein (6.3 - 8.2 g/dL) 9.4 H Albumin (3.5 - 5.0 g/dL) 4.6 Globulin (1.9 - 4.2 gm/dL) 4.8 H Albumin/Globulin Ratio (1.1 - 2.2 %) 1.0 L Free T4 (0.79 - 2.35 ng/dL) 1.96 Total T3 (0.97 - 1.69 ng/mL) 1.89 H TSH &T3 &Free T4 Intrp (0.27 - 4.20 uIU/mL) 6.370 H Coagulation PT (9.4 - 12.5 SEC) 12.3 INR (0.90 - 1.17) 1.13 APTT (25 - 37 SEC) 28 D-Dimer High Sensitivty (0 - 243 ng/ml) 253 H Hematology CBC w Diff NO MAN DIFF REQ WBC (4.8 - 10.8 /CUMM) 5.1 RBC (4.70 - 6.10 /CUMM) 5.62 Hgb (14.0 - 18.0 G/DL) 16.6 Hct (42 - 52 %) 48.2 MCV (80.0 - 94.0 FL) 85.6 MCH (27.0 - 31.0 PG) 29.6 MCHC (33.0 - 37.0 G/DL) 34.6 RDW (11.5 - 14.5 %) 12.3 Plt Count (130 - 400 /CUMM) 207 MPV (7.4 - 10.4 FL) 9.2 Gran % (42.2 - 75.2 %) 81.9 H Lymphocytes % (20.5 - 51.1 %) 11.2 L Monocytes % (1.7 - 9.3 %) 5.4 Eosinophils % (0 - 5 %) 0.8 Basophils % (0.0 - 2.0 %) 0.7 Absolute Granulocytes (1.4 - 6.5 /CUMM) 4.2 Absolute Lymphocytes (1.2 - 3.4 /CUMM) 0.6 L Absolute Monocytes (0.10 - 0.60 /CUMM) 0.3 Absolute Eosinophils (0.0 - 0.7 /CUMM) 0 Absolute Basophils (0.0 - 0.2 /CUMM) 0 Toxicology Serum Alcohol (<10 MG/DL) < 10.0 Diagnostic Data EKG Results 08/16/2017: Sinus tachycardia, probable SHE, probable LVH, and abnormal precordial R wave progression, cannot exclude an indeterminate age anterior IN. CXR Results 08/16/2017: No acute cardiopulmonary process. Other Results Chest CTA 08/16/2017: No evidence of central or segmental pulmonary embolism. A 9 mm dense structure in the periphery of the left upper lobe, closely opposed to a subsegmental pulmonary artery and vein. This may reflect a small arteriovenous malformation; the differential would include a coarse calcification, although no calcification is visualized on chest x-ray. Suggest correlation with noncontrast CT to conclusively differentiate between these two possibilities. A calcified granuloma in the right lower lobe. A 3 mm noncalcified nodule in the lingula. VTE: negative Assessment/Plan Assessment/Plan [id number] w/ hx former tobacco use, obesity, untreated BRIGITTE, & untreated HTN who presented to the ED earlier today while withdrawing from EtOH intoxication and experienced palpitations followed by recurrent intermittent episodes of relatively brief and severe CP w/ initial ECG c/w ST, VPC's, LVH and nondiagnostic right precordial ST elevation and repeat tracing also revealing ST and LVH with less ectopy, persistenT nondiagnostic right precordial ST elevation , but loss of precordial R-waves. Suspect that the nondiagnostic ST segment elevation is on the basis of his LVH and that the loss of precordial R waves is secondary to lead placement and not myocardial necrosis. Nonetheless, given his risk factors for coronary artery disease, he should be placed on observation for follow-up ECGs and troponins and if these are unremarkable an outpatient noninvasive cardiac evaluation with echocardiography and an imaging treadmill stress test for risk stratification. Naturally, with his poorly treated hypertension, medical management for his BP is also indicated. Recommendations: * Telemetry observation, follow-up ECGs, follow-up troponins. * Echocardiogram to assess LV size/function, degree of LVH, wall motion abnormalities, RV size and function, estimated PA systolic pressure, etc. * Imaging stress test had come be done on an outpatient basis if his blood pressure comes under good control of the next 72 hours. * Counseling regarding medical noncompliance, EtOH abuse, diet, cardiovascular risk reduction, need for CPAP or alternative management, etc. * Start labetalol 100 mg twice daily and titrate up for BP control. * He previously was on amlodipine 10 mg daily, lisinopril 5 mg daily, and HCTZ 12.5 mg daily. If labetalol is not adequate in controlling blood pressure consider the addition of one or barrientos of these agents as needed. * Outpatient follow-up of pulmonary nodule. * DVT prophylaxis. Further recommendations will follow, Thank you. Consult Acknowledgment - Thank you for your consult request.
[2017-08-16 18:39] VITALS: BP 157/99
[2017-08-16 21:53] VITALS: BP 140/64
[2017-08-17 00:59] VITALS: BP 120/90
[2017-08-17 04:36] VITALS: BP 122/90
[2017-08-17 05:30] LABS: ABSOLUTE BASOPHIL COUNT 0 /CUMM (0.0-0.2); ABSOLUTE EOSINOPHIL COUNT 0 /CUMM (0.0-0.7); ABSOLUTE GRANULOCYTE CT 3.9 /CUMM (1.4-6.5); ABSOLUTE LYMPH COUNT 0.7 /CUMM (1.2-3.4); ABSOLUTE MONOCYTE COUNT 0.4 /CUMM (0.10-0.60); BASOPHIL % 0.6 % (0.0-2.0); EOSINOPHIL % 0.9 % (0-5); HEMATOCRIT 45.6 % (42-52); MEAN CORPUSCULAR HGB 29.5 PG (27.0-31.0); MEAN CORPUSCULAR HGB CONC 34.7 G/DL (33.0-37.0); MEAN CORPUSCULAR VOLUME 85.1 FL (80.0-94.0); MEAN PLATELET VOLUME 9.8 FL (7.4-10.4); PLATELET COUNT 213 /CUMM (130-400); RBC DISTRIBUTION WIDTH 12.6 % (11.5-14.5); RED BLOOD CELL CT 5.37 /CUMM (4.70-6.10)
[2017-08-17 06:37] VITALS: BP 138/100
--- NOTE | 2017-08-17 08:32 | PN- Housestaff ---
Subjective Follow-up For: -Chest pain with palpitations -EtOH withdrawal / dependence -Sinus tachycardia -Transaminitis -Hypertensive Urgency Subjective: Patient seen and examined. He is seen sitting upright in his chair at bedside visiting with a friend/family member. He appears to be in no acute distress. He reports not sleeping well last night as he often woke from cold sweats and intermittent chest discomfort with heart palpitations. Presently he reports mild chest discomfort but otherwise feels comfortable. He denies any new complaints. Review of Systems Constitutional: Reports: see HPI. Objective Last 24 Hrs of Vital Signs/I&O Vital Signs Date Time Temp Pulse Resp B/P B/P Pulse O2 O2 Flow FiO2 Mean Ox Delivery Rate 08/17 0809 138/100 08/17 0809 138/100 08/17 0637 98.7 120 20 138/100 96 Room Air 08/17 0600 115 08/17 0436 98.6 108 20 122/90 08/17 0200 108 08/17 0059 98.7 112 20 120/90 96 Room Air 08/16 2200 115 08/16 2153 98.6 126 18 140/64 99 Room Air 08/16 2029 Room Air 08/16 1839 97.8 111 20 157/99 08/16 1839 97.8 111 18 157/99 96 Room Air 08/16 1729 108 20 175/106 99 Room Air 08/16 1524 98.4 110 20 170/117 08/16 1524 110 20 170/117 99 Room Air 08/16 1430 98.4 116 20 162/115 08/16 1430 98.4 116 20 162/115 08/16 1358 98.4 116 20 162/115 08/16 1254 98.8 116 18 172/122 98 Room Air 08/16 1200 82 18 188/118 98 Room Air Room Air 08/16 1140 73 18 178/106 98 Room Air Room Air 08/16 1126 989 Room Air Room Air 08/16 1125 96.1 73 18 185/125 08/16 1120 96.1 130 20 213/140 08/16 1120 78 18 185/125 97 Room Air Room Air 08/16 1037 96.1 130 20 213/140 98 Room Air Intake & Output 08/17 1600 08/17 0800 08/17 0000 Intake Total 480 240 Output Total Balance 480 240 Intake, Oral 480 240 Number 0 Bowel Movements Patient 137.92 kg Weight Weight Bed scale Measurement Method Physical Exam General Appearance: Alert, Oriented X3, Cooperative, No Acute Distress Other Physical Findings: -Gen.: Well-developed, well-nourished young -[place] man in no acute distress -HEENT: NCAT, PERRLA, EOMI, anicteric sclera, moist mucous membranes -Neck: Supple, no JVD or carotid bruit, trachea midline -Cardio: Normal S1/S2 without murmurs/gallops/rubs; regular rate and rhythm -Pulmonary: Clear to auscultation bilaterally -Abdomen: Soft, nontender, nondistended, bowel sounds intact -Neuro: Awake and alert, cranial nerves II through XII grossly intact, strength 5/54, speech/sensation/coordination/gait intact, face symmetric -Extremities: Normal pulses Current Medications: Current Medications Sig/Tasha Start time Last Medication Dose Route Stop Time Status Admin Acetaminophen 650 MG Q6P PRN 08/16 1545 AC 08/17 PO 0812 Amlodipine Besylate 10 MG DAILY 08/17 0900 AC 08/17 PO 0809 Amlodipine Besylate 0 .STK-MED ONE 08/16 1442 DC PO Amlodipine Besylate 10 MG ONCE ONE 08/16 1415 DC 08/16 PO 08/16 1416 1430 Aspirin 81 MG DAILY 08/17 0900 AC 08/17 PO 0810 Atorvastatin Calcium 40 MG 1700 08/16 1700 AC 08/16 PO 1754 Folic Acid 0 .STK-MED ONE 08/16 1751 DC PO Folic Acid 1 MG DAILY 08/16 1541 AC 08/17 PO 08/18 0901 0810 Heparin Sodium 5,000 UNIT Q8 08/16 2200 AC 08/17 (Porcine) SC 0559 Hydrochlorothiazide 12.5 MG DAILY 08/17 0900 AC 08/17 PO 0810 Hydrochlorothiazide 12.5 MG ONCE ONE 08/16 1430 DC 08/16 PO 08/16 1431 1430 Labetalol HCl 0 .STK-MED ONE 08/16 1128 DC IV Labetalol HCl 10 MG ONCE ONE 08/16 1115 DC 08/16 IV 08/16 1116 1125 Lisinopril 10 MG DAILY 08/17 0900 AC 08/17 PO 0809 Lisinopril 0 .STK-MED ONE 08/16 1441 DC PO Lisinopril 10 MG ONCE ONE 08/16 1430 DC 08/16 PO 08/16 1431 1430 Lorazepam 2 MG Q8 08/17 1400 DC PO Lorazepam 3 MG Q6 08/17 1200 AC PO Lorazepam 2 MG Q6 08/17 0600 DC 08/17 PO 0558 Lorazepam 2 MG Q6 08/16 1800 DC 08/16 PO 08/17 0001 2307 Lorazepam 0 .STK-MED ONE 08/16 1755 DC PO Lorazepam 1 MG Q2P PRN 08/16 1545 AC 08/17 PO 0436 Lorazepam 0 .STK-MED ONE 08/16 1409 DC .ROUTE Lorazepam 2 MG ONE ONE 08/16 1400 DC 08/16 IV 08/16 1401 1404 Lorazepam 2 MG ONE ONE 08/16 1115 DC 08/16 IV 08/16 1116 1118 Lorazepam 0 .STK-MED ONE 08/16 1112 DC .ROUTE Magnesium Oxide 400 MG BID 08/17 0900 AC PO Melatonin 5 MG AT BEDTIME 08/17 2100 AC PO Multivitamins 0 .STK-MED ONE 08/16 1751 DC PO Multivitamins 1 TAB DAILY 08/16 1541 AC 08/17 PO 0809 Potassium Chloride 40 MEQ Q1H 08/17 0845 DC PO 08/17 0946 Thiamine HCl 0 .STK-MED ONE 08/16 1751 DC PO Thiamine HCl 100 MG DAILY 08/16 1541 AC 08/17 PO 08/18 0901 0809 Last 24 Hrs of Lab/Sage Results Last 24 Hrs of Labs/Mics: Laboratory Tests 08/17/17 0500: Anion Gap 15, Estimated GFR > 60, BUN/Creatinine Ratio 21.1, Magnesium 1.5 L, Total Bilirubin 2.1 H, Direct Bilirubin 0.7 H, AST 133 H, ALT 127 H, Alkaline Phosphatase 91, Total Protein 8.6 H, Albumin 4.1, CBC w Diff NO MAN DIFF REQ, RBC 5.37, MCV 85.1, MCH 29.5, MCHC 34.7, RDW 12.6, MPV 9.8, Gran % 77.0 H, Lymphocytes % 13.1 L, Monocytes % 8.4, Eosinophils % 0.9, Basophils % 0.6, Absolute Granulocytes 3.9, Absolute Lymphocytes 0.7 L, Absolute Monocytes 0.4, Absolute Eosinophils 0, Absolute Basophils 0 08/16/17 2300: Troponin I < 0.01 08/16/17 2000: Urine Opiates Screen < 100, Methadone Screen < 40, Barbiturate Screen < 60, Ur Phencyclidine Scrn < 6.00, Amphetamines Screen < 100, U Benzodiazepines Scrn < 85, Urine Cocaine Screen < 50, Urine Cannabis Screen < 5.00 08/16/17 1735: Troponin I < 0.01 08/16/17 1105: Anion Gap 15, Estimated GFR > 60, BUN/Creatinine Ratio 12.0, Glucose 108 H, Calcium 9.0, Magnesium 1.2 L, Total Bilirubin 2.7 H, AST 108 H, ALT 136 H, Alkaline Phosphatase 101, Troponin I < 0.01, Total Protein 9.4 H, Albumin 4.6, Globulin 4.8 H, Albumin/Globulin Ratio 1.0 L, Free T4 1.96, Total T3 1.89 H, TSH &T3 &Free T4 Intrp 6.370 H, PT 12.3, INR 1.13, APTT 28, D-Dimer High Sensitivty 253 H, CBC w Diff NO MAN DIFF REQ, RBC 5.62, MCV 85.6, MCH 29.6, MCHC 34.6, RDW 12.3, MPV 9.2, Gran % 81.9 H, Lymphocytes % 11.2 L, Monocytes % 5.4, Eosinophils % 0.8, Basophils % 0.7, Absolute Granulocytes 4.2, Absolute Lymphocytes 0.6 L, Absolute Monocytes 0.3, Absolute Eosinophils 0, Absolute Basophils 0, Serum Alcohol < 10.0 Assessment/Plan Assessment: 32-year-old man with history of EtOH withdrawal/abuse and hypertension seen for evaluation of acute onset heart palpitations with chest pain. Patient remains in sinus tachycardia for unclear reasons. Serial troponin/EKG remained unremarkable. His previous antihypertensive regimen of amlodipine, lisinopril, and hydrochlorothiazide was restarted yesterday with adequate improvement of his blood pressure. Amlodipine was discontinued and Labetalol 100 mg PO BID was started. Patient was seen by entry level sales associate Dr. Celis whom felt that the patient's nondiagnostic ST segment elevation is secondary to LVH should be ruled out and thus far has been. He is being continued on the antihypertensive regimen. See what scores overnight were as high as 10 requiring 1 mg of additional Ativan. He appears anxious this morning for which his Ativan was increased to 3 mg every 6 hours. Echocardiogram is pending. Omeprazole was started for possible alcohol gastritis. It is unclear why patient had decreased oral intake and felt "ill was "over the past couple of days causing him to stop drinking. It is possible that patient's heart palpitations and symptoms are due to EtOH withdrawal however he has no tremor or other obvious signs of withdrawal other than hypertension. Patient is noncompliant with his antihypertensive regimen and presents with hypertensive urgency without any neurologic signs or end organ damage. Patient is to be admitted to the telemetry floor for cardiology consult, serial troponin/EKG, and telemetry monitoring. He is to be continued on a standing dose of oral Ativan with additional doses as needed. Patient remains hypokalemic and hypomagnesemic which was repleted. Problem List -Chest pain with palpitations -EtOH withdrawal / dependence -Sinus tachycardia -Transaminitis -Hypertensive Urgency -History of Hypertension -Anxiety / Depression Plan -Admit to telemetry -Telemetry monitoring -CIWA -Increase Ativan to 3 mg PO Q6H -Ativan PRN per CIWA -Thiamine / Folate / Multivitamin -Amlodipine discontinued -Lisinopril 10 mg by mouth daily -Hydrochlorothiazide 12.5 mg by mouth daily -Labetalol 100 mg by mouth twice a day started -Omeprazole 40 mg PO Daily started -Cardiology following for chest pain -Social work consult for alcohol abuse -Pain control with acetaminophen -Regular diet -DVT prophylaxis with subcutaneous heparin -Full code -Outpatient stress test Problem List: 1. Chest pain syndrome 2. Alcohol withdrawal Pain Ratin Pain Location: Chest Pain Goal: Pain 4 or less Pain Plan: See assessment Tomorrow's Labs & Rationales: Serum chemistry
--- NOTE | 2017-08-17 10:15 | PN- Att Addend ---
Attending Addendum Attending Brief Note Patient seen and examined. Plan of care discussed with the medical team and the patient. Available lab work and radiology test reports were reviewed. Patient states that he was not able to sleep last night. He still appears anxious and reports overnight some sweating and lightheadedness. He is noted to be tachycardic on telemetry. Exam: General: Patient awake alert oriented without any distress but appears anxious CVS: S1 plus S2 without any murmur or gallops Chest: Few scattered crepitation without any wheeze. There is no respiratory distress. Abdomen: Soft non-tender, bowel sound present, no guarding or rebound REHAB AID: No tremors are noted. Awake alert oriented without any focal neuro deficit and follows commands appropriately Extremities: No edema; no clubbing or cyanosis noted Assessment * Alcohol abuse * Alcohol withdrawal * Transaminitis and elevated bilirubin likely due to alcohol abuse * Sleep apnea * Rule out AL and chest pain- negative troponins * Hypokalemia Plan * Increase Ativan 3 mg by mouth every 6 and CIWA protocol * Continue aspirin and Lipitor; * Continue current BP medications * Add melatonin for night when necessary for sleep * Replace potassium by mouth * Plan is noted for outpatient stress testing Current Medications Sig/Tasha Start time Last Medication Dose Route Stop Time Status Admin Acetaminophen 650 MG Q6P PRN 08/16 1545 AC 08/17 PO 0812 Amlodipine Besylate 10 MG DAILY 08/17 0900 AC 08/17 PO 0809 Amlodipine Besylate 0 .STK-MED ONE 08/16 1442 DC PO Amlodipine Besylate 10 MG ONCE ONE 08/16 1415 DC 08/16 PO 08/16 1416 1430 Aspirin 81 MG DAILY 08/17 0900 AC 08/17 PO 0810 Atorvastatin Calcium 40 MG 1700 08/16 1700 AC 08/16 PO 1754 Folic Acid 0 .STK-MED ONE 08/16 1751 DC PO Folic Acid 1 MG DAILY 08/16 1541 AC 08/17 PO 08/18 0901 0810 Heparin Sodium 5,000 UNIT Q8 08/16 2200 AC 08/17 (Porcine) SC 0559 Hydrochlorothiazide 12.5 MG DAILY 08/17 0900 AC 08/17 PO 0810 Hydrochlorothiazide 12.5 MG ONCE ONE 08/16 1430 DC 08/16 PO 08/16 1431 1430 Labetalol HCl 0 .STK-MED ONE 08/16 1128 DC IV Labetalol HCl 10 MG ONCE ONE 08/16 1115 DC 08/16 IV 08/16 1116 1125 Lisinopril 10 MG DAILY 08/17 0900 AC 08/17 PO 0809 Lisinopril 0 .STK-MED ONE 08/16 1441 DC PO Lisinopril 10 MG ONCE ONE 08/16 1430 DC 08/16 PO 08/16 1431 1430 Lorazepam 2 MG Q8 08/17 1400 DC PO Lorazepam 3 MG Q6 08/17 1200 AC PO Lorazepam 2 MG Q6 08/17 0600 DC 08/17 PO 0558 Lorazepam 2 MG Q6 08/16 1800 DC 08/16 PO 08/17 0001 2307 Lorazepam 0 .STK-MED ONE 08/16 1755 DC PO Lorazepam 1 MG Q2P PRN 08/16 1545 AC 08/17 PO 0436 Lorazepam 0 .STK-MED ONE 08/16 1409 DC .ROUTE Lorazepam 2 MG ONE ONE 08/16 1400 DC 08/16 IV 08/16 1401 1404 Lorazepam 2 MG ONE ONE 08/16 1115 DC 08/16 IV 08/16 1116 1118 Lorazepam 0 .STK-MED ONE 08/16 1112 DC .ROUTE Magnesium Oxide 400 MG BID 08/17 0900 AC PO Melatonin 5 MG AT BEDTIME 08/17 2100 AC PO Multivitamins 0 .STK-MED ONE 08/16 1751 DC PO Multivitamins 1 TAB DAILY 08/16 1541 AC 08/17 PO 0809 Potassium Chloride 40 MEQ Q1H 08/17 0845 DC PO 08/17 0946 Thiamine HCl 0 .STK-MED ONE 08/16 1751 DC PO Thiamine HCl 100 MG DAILY 08/16 1541 AC 08/17 PO 08/18 0901 0809 Laboratory Tests 08/17/17 0500: Anion Gap 15, Estimated GFR > 60, BUN/Creatinine Ratio 21.1, Magnesium 1.5 L, Total Bilirubin 2.1 H, Direct Bilirubin 0.7 H, AST 133 H, ALT 127 H, Alkaline Phosphatase 91, Total Protein 8.6 H, Albumin 4.1, CBC w Diff NO MAN DIFF REQ, RBC 5.37, MCV 85.1, MCH 29.5, MCHC 34.7, RDW 12.6, MPV 9.8, Gran % 77.0 H, Lymphocytes % 13.1 L, Monocytes % 8.4, Eosinophils % 0.9, Basophils % 0.6, Absolute Granulocytes 3.9, Absolute Lymphocytes 0.7 L, Absolute Monocytes 0.4, Absolute Eosinophils 0, Absolute Basophils 0 08/16/17 2300: Troponin I < 0.01 08/16/17 2000: Urine Opiates Screen < 100, Methadone Screen < 40, Barbiturate Screen < 60, Ur Phencyclidine Scrn < 6.00, Amphetamines Screen < 100, U Benzodiazepines Scrn < 85, Urine Cocaine Screen < 50, Urine Cannabis Screen < 5.00 08/16/17 1735: Troponin I < 0.01 08/16/17 1105: Anion Gap 15, Estimated GFR > 60, BUN/Creatinine Ratio 12.0, Glucose 108 H, Calcium 9.0, Magnesium 1.2 L, Total Bilirubin 2.7 H, AST 108 H, ALT 136 H, Alkaline Phosphatase 101, Troponin I < 0.01, Total Protein 9.4 H, Albumin 4.6, Globulin 4.8 H, Albumin/Globulin Ratio 1.0 L, Free T4 1.96, Total T3 1.89 H, TSH &T3 &Free T4 Intrp 6.370 H, PT 12.3, INR 1.13, APTT 28, D-Dimer High Sensitivty 253 H, CBC w Diff NO MAN DIFF REQ, RBC 5.62, MCV 85.6, MCH 29.6, MCHC 34.6, RDW 12.3, MPV 9.2, Gran % 81.9 H, Lymphocytes % 11.2 L, Monocytes % 5.4, Eosinophils % 0.8, Basophils % 0.7, Absolute Granulocytes 4.2, Absolute Lymphocytes 0.6 L, Absolute Monocytes 0.3, Absolute Eosinophils 0, Absolute Basophils 0, Serum Alcohol < 10.0 Vital Signs Date Time Temp Pulse Resp B/P B/P Pulse O2 O2 Flow FiO2 Mean Ox Delivery Rate 08/17 0809 138/100 08/17 0809 138/100 08/17 0637 98.7 120 20 138/100 96 Room Air 08/17 0600 115 08/17 0436 98.6 108 20 122/90 08/17 0200 108 08/17 0059 98.7 112 20 120/90 96 Room Air 08/16 2200 115 08/16 2153 98.6 126 18 140/64 99 Room Air 08/16 2029 Room Air 08/16 1839 97.8 111 20 157/99 08/16 1839 97.8 111 18 157/99 96 Room Air 08/16 1729 108 20 175/106 99 Room Air 08/16 1524 98.4 110 20 170/117 08/16 1524 110 20 170/117 99 Room Air 08/16 1430 98.4 116 20 162/115 08/16 1430 98.4 116 20 162/115 08/16 1358 98.4 116 20 162/115 08/16 1254 98.8 116 18 172/122 98 Room Air 08/16 1200 82 18 188/118 98 Room Air Room Air 08/16 1140 73 18 178/106 98 Room Air Room Air 08/16 1126 989 Room Air Room Air 08/16 1125 96.1 73 18 185/125 08/16 1120 96.1 130 20 213/140 08/16 1120 78 18 185/125 97 Room Air Room Air 08/16 1037 96.1 130 20 213/140 98 Room Air Intake & Output 08/17 1600 08/17 0800 08/17 0000 Intake Total 480 240 Output Total Balance 480 240 Intake, Oral 480 240 Number 0 Bowel Movements Patient 304 lb Weight Weight Bed scale Measurement Method
--- NOTE | 2017-08-17 14:05 | PN- Cardiology ---
Subjective Subjective: * Patient reports a brief episode of palpitations and chest discomfort upon arising. No shortness of breath. * low potassium of 3.0 * mildly elevated hepatic transaminases Objective Vital Signs and I&Os Vital Signs Date Time Temp Pulse Resp B/P B/P Pulse O2 O2 Flow FiO2 Mean Ox Delivery Rate 08/17 0809 138/100 08/17 0809 138/100 08/17 0637 98.7 120 20 138/100 96 Room Air 08/17 0600 115 08/17 0436 98.6 108 20 122/90 08/17 0200 108 08/17 0059 98.7 112 20 120/90 96 Room Air 08/16 2200 115 08/16 2153 98.6 126 18 140/64 99 Room Air 08/16 2029 Room Air 08/16 1839 97.8 111 20 157/99 08/16 1839 97.8 111 18 157/99 96 Room Air 08/16 1729 108 20 175/106 99 Room Air 08/16 1524 98.4 110 20 170/117 08/16 1524 110 20 170/117 99 Room Air 08/16 1430 98.4 116 20 162/115 08/16 1430 98.4 116 20 162/115 Intake & Output 08/17 1600 08/17 0800 08/17 0000 08/16 1600 08/16 0800 08/16 0000 Intake Total 480 240 100 Output Total Balance 480 240 100 Intake, Oral 480 240 100 Number 0 Bowel Movements Patient 304 lb 330 lb Weight Weight Bed scale Estimated Measurement Method Physical Exam: General: WD/overweight male in NAD; alert and oriented x 3 Neck: no JVD Heart: tachycardic with regular rhythm Lungs: clear bilaterally Extremities: no edema Assessment/Plan Assessment/Plan * This patient is hypertensive and tachycardic. Discontinue Amlodipine and begin Labetolol at 200mg BID to control heart rate and BP. It is reasonable to continue a small dose of HCTZ. Replete his potassium. Continue Lisinopril. * In consideration of the patient's history of alcohol abuse and atypical chest pain I would consider a gastritis and begin a PPI. Continue telemetry? Yes
[2017-08-17 14:40] VITALS: BP 118/80
[2017-08-17 22:00] VITALS: BP 118/88
[2017-08-18 06:49] VITALS: BP 120/90
[2017-08-18 08:00] VITALS: BP 120/90
--- NOTE | 2017-08-18 11:43 | PN- Att Addend ---
Attending Addendum Attending Brief Note Patient seen and examined. Plan of care discussed with the medical team and the patient. Available lab work and radiology test reports were reviewed. Patient states that he was able to sleep last night. He appears more calm but the reports the intermittent sweating. He is noted to be tachycardic on telemetry. Exam: General: Patient awake alert oriented without any distress CVS: S1 plus S2 without any murmur or gallops Chest: Few scattered crepitation without any wheeze. There is no respiratory distress. Abdomen: Soft non-tender, bowel sound present, no guarding or rebound CREMATOR: No tremors are noted. Awake alert oriented without any focal neuro deficit and follows commands appropriately Extremities: No edema; no clubbing or cyanosis noted ; no tremors are noted Assessment * Alcohol abuse * Alcohol withdrawal * Transaminitis and elevated bilirubin likely due to alcohol abuse * Sleep apnea * Rule out NH and chest pain- negative troponins * Hypokalemia * Persistent tachycardia- likely due to alcohol withdrawal. Note that his free T4 was within normal range. Plan * Decrease Ativan to 2 mg by mouth every 6 and CIWA protocol * Continue aspirin and Lipitor; * Continue current BP medications * Continue melatonin for night when necessary for sleep * No recheck labs tomorrow * Plan is noted for outpatient stress testing Current Medications Sig/Tasha Start time Last Medication Dose Route Stop Time Status Admin Acetaminophen 650 MG Q6P PRN 08/16 1545 AC 08/18 PO 0604 Amlodipine Besylate 10 MG DAILY 08/17 0900 DC 08/17 PO 0809 Aspirin 81 MG DAILY 08/17 0900 AC 08/18 PO 0850 Atorvastatin Calcium 40 MG 1700 08/16 1700 AC 08/17 PO 1735 Folic Acid 1 MG DAILY 08/16 1541 DC 08/18 PO 08/18 0901 0850 Heparin Sodium 5,000 UNIT Q8 08/16 2200 AC 08/18 (Porcine) SC 0602 Hydrochlorothiazide 12.5 MG DAILY 08/17 0900 AC 08/18 PO 0850 Ibuprofen 800 MG Q6P PRN 08/18 0830 AC PO Ketorolac 30 MG ONCE ONE 08/18 0830 DC 08/18 Tromethamine IV 08/18 0831 0838 Labetalol HCl 100 MG BID 08/17 2100 AC 08/18 PO 0850 Lisinopril 10 MG DAILY 08/17 0900 AC 08/18 PO 0850 Lorazepam 3 MG Q6 08/17 1200 AC 08/18 PO 0601 Lorazepam 1 MG Q2P PRN 08/16 1545 AC 08/17 PO 0436 Magnesium Oxide 400 MG BID 08/17 0900 AC 08/18 PO 0850 Melatonin 5 MG AT BEDTIME 08/17 2100 AC 08/17 PO 2240 Multivitamins 1 TAB DAILY 08/16 1541 AC 08/18 PO 0850 Omeprazole 40 MG DAILY AC 08/18 0700 AC 08/18 PO 0601 Thiamine HCl 100 MG DAILY 08/16 1541 DC 08/18 PO 08/18 0901 0850 Laboratory Tests 08/18/17 1055: Rheum Factor Semi-Quant Pending 08/18/17 1055: ESR Westergren Pending, SVEN Titer Pending, Anti-Nuclear Antibody Pending, Lyme Disease Antibody Pending 08/18/17 0610: Anion Gap 12, Estimated GFR > 60, BUN/Creatinine Ratio 28.8 H, Magnesium 1.8 08/17/17 0500: Anion Gap 15, Estimated GFR > 60, BUN/Creatinine Ratio 21.1, Magnesium 1.5 L, Total Bilirubin 2.1 H, Direct Bilirubin 0.7 H, AST 133 H, ALT 127 H, Alkaline Phosphatase 91, Total Protein 8.6 H, Albumin 4.1, CBC w Diff NO MAN DIFF REQ, RBC 5.37, MCV 85.1, MCH 29.5, MCHC 34.7, RDW 12.6, MPV 9.8, Gran % 77.0 H, Lymphocytes % 13.1 L, Monocytes % 8.4, Eosinophils % 0.9, Basophils % 0.6, Absolute Granulocytes 3.9, Absolute Lymphocytes 0.7 L, Absolute Monocytes 0.4, Absolute Eosinophils 0, Absolute Basophils 0 08/16/17 2300: Troponin I < 0.01 08/16/17 2000: Urine Opiates Screen < 100, Methadone Screen < 40, Barbiturate Screen < 60, Ur Phencyclidine Scrn < 6.00, Amphetamines Screen < 100, U Benzodiazepines Scrn < 85, Urine Cocaine Screen < 50, Urine Cannabis Screen < 5.00 08/16/17 1735: Troponin I < 0.01 08/16/17 1105: Anion Gap 15, Estimated GFR > 60, BUN/Creatinine Ratio 12.0, Glucose 108 H, Calcium 9.0, Magnesium 1.2 L, Total Bilirubin 2.7 H, AST 108 H, ALT 136 H, Alkaline Phosphatase 101, Troponin I < 0.01, Total Protein 9.4 H, Albumin 4.6, Globulin 4.8 H, Albumin/Globulin Ratio 1.0 L, Free T4 1.96, Total T3 1.89 H, TSH &T3 &Free T4 Intrp 6.370 H, PT 12.3, INR 1.13, APTT 28, D-Dimer High Sensitivty 253 H, CBC w Diff NO MAN DIFF REQ, RBC 5.62, MCV 85.6, MCH 29.6, MCHC 34.6, RDW 12.3, MPV 9.2, Gran % 81.9 H, Lymphocytes % 11.2 L, Monocytes % 5.4, Eosinophils % 0.8, Basophils % 0.7, Absolute Granulocytes 4.2, Absolute Lymphocytes 0.6 L, Absolute Monocytes 0.3, Absolute Eosinophils 0, Absolute Basophils 0, Serum Alcohol < 10.0 Vital Signs Date Time Temp Pulse Resp B/P B/P Pulse O2 O2 Flow FiO2 Mean Ox Delivery Rate 08/18 0850 103 120/90 08/18 0850 103 120/90 08/18 0800 98.4 104 20 120/90 08/18 0800 95 Room Air 08/18 0649 98.4 104 20 120/90 95 Room Air 08/17 2240 106 118/88 08/17 2200 97.8 106 20 118/88 95 Room Air 08/17 1440 99.8 118 20 118/80 97 Room Air Intake & Output 08/18 1600 08/18 0800 08/18 0000 Intake Total 480 480 Output Total Balance 480 480 Intake, Oral 480 480 Patient 310 lb Weight Weight Bed scale Measurement Method
[2017-08-18 14:59] VITALS: BP 124/88
--- NOTE | 2017-08-18 15:34 | PN- Housestaff ---
Subjective Follow-up For: -Chest pain with palpitations -EtOH withdrawal / dependence -Sinus tachycardia -Transaminitis -Hypertensive Urgency Complaints: no complaints Tele-Events Since Last Visit: sr [id number] Subjective: patient has no chest pain today. no shortness of breath. he does however complain of widespread joint pain that he describes as having for years ever since he hurt himself while chopping wood 5 years ago. he also states that he has night cold sweats commonly. Review of Systems Constitutional: Reports: chills, diaphoresis (night cold sweats). Cardiovascular: Reports: no symptoms. Respiratory: Reports: no symptoms. Gastrointestinal: Reports: no symptoms. Musculoskeletal: Reports: joint pain. Objective Last 24 Hrs of Vital Signs/I&O Vital Signs Date Time Temp Pulse Resp B/P B/P Pulse O2 O2 Flow FiO2 Mean Ox Delivery Rate 08/18 1800 106 08/18 1600 98.1 98 20 124/88 08/18 1600 96 Room Air 08/18 1459 98.1 98 22 124/88 96 08/18 1400 106 08/18 1200 101 08/18 1000 106 08/18 0850 103 120/90 08/18 0850 103 120/90 08/18 0800 98.4 104 20 120/90 08/18 0800 95 Room Air 08/18 0649 98.4 104 20 120/90 95 Room Air 08/17 2240 106 118/88 08/17 2200 97.8 106 20 118/88 95 Room Air Intake & Output 08/18 1600 08/18 0800 08/18 0000 Intake Total 700 480 480 Output Total Balance 700 480 480 Intake, Oral 700 480 480 Patient 310 lb Weight Weight Bed scale Measurement Method Physical Exam General Appearance: Alert, Oriented X3, Cooperative, No Acute Distress Skin: No Rashes, No Breakdown, No Significant Lesion Skin Temp/Moisture Exam: Warm/Dry Sepsis Skin Exam (color): Normal for Ethnicity HEENT: Atraumatic, PERRLA, EOMI, Mucous Membr. moist/pink Cardiovascular: Regular Rate, Normal S1, Normal S2, No Murmurs Lungs: Clear to Auscultation, Normal Air Movement Abdomen: Normal Bowel Sounds, Soft, No Tenderness, No Hepatospenomegaly Neurological: Normal Gait, Normal Speech, Strength at 5/5 X4 Ext, Normal Tone, Sensation Intact, Cranial Nerves 3-12 NL, Reflexes 2+ Extremities: No Clubbing, No Cyanosis, No Edema, Normal Pulses, No Tenderness/ Swelling Vascular: Normal Pulses, Pulses Symmetrical Current Medications: Current Medications Sig/Tasha Start time Last Medication Dose Route Stop Time Status Admin Acetaminophen 650 MG .STK-MED ONE 08/18 0604 DC PO 08/18 0605 Acetaminophen 650 MG Q6P PRN 08/16 1545 AC 08/18 PO 1752 Aspirin 81 MG DAILY 08/17 0900 AC 08/18 PO 0850 Atorvastatin Calcium 40 MG 1700 08/16 1700 AC 08/18 PO 1748 Folic Acid 1 MG DAILY 08/16 1541 DC 08/18 PO 08/18 0901 0850 Heparin Sodium 5,000 UNIT Q8 08/16 2200 AC 08/18 (Porcine) SC 2011 Hydrochlorothiazide 12.5 MG DAILY 08/17 0900 AC 08/18 PO 0850 Ibuprofen 800 MG Q6P PRN 08/18 0830 AC 08/18 PO 2014 Ketorolac 30 MG ONCE ONE 08/18 0830 DC 08/18 Tromethamine IV 08/18 0831 0838 Labetalol HCl 100 MG BID 08/17 2100 AC 08/18 PO 0850 Lisinopril 10 MG DAILY 08/17 0900 AC 08/18 PO 0850 Lorazepam 2 MG Q6 08/18 1800 AC 08/18 PO 1748 Lorazepam 3 MG Q6 08/17 1200 DC 08/18 PO 1158 Lorazepam 1 MG Q2P PRN 08/16 1545 AC 08/17 PO 0436 Magnesium Oxide 400 MG BID 08/17 0900 AC 08/18 PO 2012 Melatonin 5 MG AT BEDTIME 08/17 2100 AC 08/17 PO 2240 Multivitamins 1 TAB DAILY 08/16 1541 AC 08/18 PO 0850 Omeprazole 40 MG DAILY AC 08/18 1820 CAN PO Omeprazole 40 MG DAILY AC 08/18 0700 AC 08/18 PO 0601 Thiamine HCl 100 MG DAILY 08/16 1541 DC 08/18 PO 08/18 0901 0850 Last 24 Hrs of Lab/Sage Results Last 24 Hrs of Labs/Mics: Laboratory Tests 08/18/17 1055: Rheum Factor Semi-Quant 9.6 08/18/17 1055: ESR Westergren 27 H, LILIA Titer Pending, Anti-Nuclear Antibody Pending, Lyme Disease Antibody Pending 08/18/17 0610: Anion Gap 12, Estimated GFR > 60, BUN/Creatinine Ratio 28.8 H, Magnesium 1.8 Orders CIWA Score (last 24 hrs): 0 Assessment/Plan Assessment: 32-year-old man with history of EtOH withdrawal/abuse and hypertension seen for evaluation of acute onset heart palpitations with chest pain. Patient remains in sinus tachycardia for unclear reasons. Serial troponin/EKG remained unremarkable. His previous antihypertensive regimen of amlodipine, lisinopril, and hydrochlorothiazide was restarted with adequate improvement of his blood pressure. Amlodipine was discontinued and Labetalol 100 mg PO BID was started. Patient was seen by hair specialist Dr. Celis whom felt that the patient 's nondiagnostic ST segment elevation is secondary to LVH should be ruled out and thus far has been. He is being continued on the antihypertensive regimen. CIWA 0 overnight and only got scheduled ativan accordingly. He appears calm this morning, no tremors. Echocardiogram is pending. Omeprazole was started for possible alcohol gastritis. Patient is admitted to the telemetry floor. Problem List -Chest pain with palpitations -EtOH withdrawal / dependence -Sinus tachycardia -Transaminitis -Hypertensive Urgency -History of Hypertension -Anxiety / Depression WIDESPREAD JOINT PAIN Plan -Telemetry monitoring -CIWA -DECREASE ATIVAN TO 2 mg PO Q6H -Ativan PRN per CIWA -Thiamine / Folate / Multivitamin -Amlodipine discontinued -Lisinopril 10 mg by mouth daily -Hydrochlorothiazide 12.5 mg by mouth daily -Labetalol 100 mg by mouth twice a day started -Omeprazole 40 mg PO Daily -Cardiology following for chest pain -Social work consult for alcohol abuse -Pain control with acetaminophen -JOINT PAIN: patient notes widespread migratory joint pain for 5 years after chopping wood. He notes pain in the PIPs, shoulder, hip, knee, elbow at varying times. They hurt less as the day progresses. He denies any target lesions ever or ticks. He denies any gastrointestinal illnesses that he can remember. He has not been checked for STD's in "a while". He was adopted so does not know his family history. He notes long time cold sweats at night. -Run RF, LILIA, LYME, ESR to screen for polymyalgia rheumatica, RA, lyme disease. Of note no hilar lymphadenopathy on CTA. -Regular diet -DVT prophylaxis with subcutaneous heparin -Full code -Outpatient stress test Problem List: 1. Chest pain syndrome 2. Hypertensive urgency 3. Alcohol abuse 4. Arthritis Pain Ratin Pain Location: widespread joint pain Pain Goal: Pain 4 or less Pain Plan: pathway Tomorrow's Labs & Rationales: cbc bep esr rf lilia lyme
[2017-08-18 16:00] VITALS: BP 124/88
--- NOTE | 2017-08-18 16:06 | PN- Cardiology ---
Subjective Subjective: * Patient is comfortable today without chest discomfort, shortness of breath or palpitations. * normal potassium of 4.3 * mildly elevated hepatic transaminases * sinus rhythm Objective Vital Signs and I&Os Vital Signs Date Time Temp Pulse Resp B/P B/P Pulse O2 O2 Flow FiO2 Mean Ox Delivery Rate 08/18 1459 98.1 98 22 124/88 96 08/18 1400 106 08/18 1200 101 08/18 1000 106 08/18 0850 103 120/90 08/18 0850 103 120/90 08/18 0800 98.4 104 20 120/90 08/18 0800 95 Room Air 08/18 0649 98.4 104 20 120/90 95 Room Air 08/17 2240 106 118/88 08/17 2200 97.8 106 20 11888 95 Room Air Intake & Output 08/18 1600 08/18 0800 08/18 0000 08/17 1600 08/17 0800 08/17 0000 Intake Total 700 480 480 480 240 Output Total Balance 700 480 480 480 240 Intake, Oral 700 480 480 480 240 Number 0 Bowel Movements Patient 310 lb 304 lb Weight Weight Bed scale Bed scale Measurement Method Physical Exam: General: WD/overweight male in NAD; alert and oriented x 3 Neck: no JVD Heart: regular rate and rhythm Lungs: clear bilaterally Extremities: no edema Assessment/Plan Assessment/Plan * This patient now has a well controlled blood pressure and heart rate. Continue Labetolol at 100mg BID to control heart rate and BP. It is reasonable to continue a small dose of HCTZ. Continue Lisinopril. * In consideration of the patient's history of alcohol abuse and atypical chest pain I would consider a gastritis and begin a PPI. Continue telemetry? Yes
[2017-08-18 20:00] VITALS: BP 106/82
[2017-08-18 23:00] VITALS: BP 106/82
[2017-08-19] VITALS (7 sets, daily range): BP systolic 118–134; BP diastolic 62–88
--- NOTE | 2017-08-19 07:35 | PN- Housestaff ---
Subjective Follow-up For: Atypical chest pain Alcohol withdrawal Transaminitis Polyarthralgia Tele-Events Since Last Visit: Sinus rhythm with heart rate between [id number] Subjective: No overnight events. Patient remained afebrile overnight. Seen and examined this morning. He reported having intermittent chest pain with palpitations and anxiety patient also reported having sweating this morning. He denied any shortness of breath, nausea, vomiting, fever, abdominal pain and dysuria. His CIWA score is zero. Review of Systems Constitutional: Denies: chills, fever. EENTM: Reports: no symptoms. Cardiovascular: Reports: chest pain, palpitations. Denies: orthopena, syncope. Respiratory: Denies: cough, short of breath, sputum production. Gastrointestinal: Denies: abdominal pain, bloating, constipation, diarrhea, nausea. Genitourinary: Reports: no symptoms. Neurological/Psychological: Reports: no symptoms. Objective Last 24 Hrs of Vital Signs/I&O Vital Signs Date Time Temp Pulse Resp B/P B/P Pulse O2 O2 Flow FiO2 Mean Ox Delivery Rate 08/19 0700 98.0 100 18 132/88 97 Room Air 08/19 0015 88 124/80 08/18 2300 98.1 106 18 106/82 97 Room Air 08/18 2000 98.1 106 18 106/82 08/18 1800 106 08/18 1600 98.1 98 20 124/88 08/18 1600 96 Room Air 08/18 1459 98.1 98 22 124/88 96 08/18 1400 106 08/18 1200 101 08/18 1000 106 08/18 0850 103 120/90 08/18 0850 103 120/90 08/18 0800 98.4 104 20 120/90 08/18 0800 95 Room Air Intake & Output 08/19 0800 08/19 0000 08/18 1600 Intake Total 110 580 700 Output Total Balance 110 580 700 Intake, IV 10 Intake, Oral 100 580 700 Patient 214 lb Weight Physical Exam General Appearance: Alert, Oriented X3, Cooperative Skin: No Rashes Skin Temp/Moisture Exam: Warm/Dry Sepsis Skin Exam (color): Normal for Ethnicity HEENT: Atraumatic, PERRLA, EOMI Neck: Supple Cardiovascular: Normal S1, Normal S2 Lungs: Clear to Auscultation Abdomen: Soft, No Tenderness Neurological: Normal Speech, Strength at 5/5 X4 Ext, Normal Tone, Sensation Intact Extremities: No Edema Assessment/Plan Assessment: 32 YO M ex-smoker (quit 5 yrs back, 1pack/d) with past medical history of hypertension noncompliant to medication, alcohol abuse, obstructive sleep apnea and anxiety came to the ED with chief complaint of chest tightness, palpitation and shortness of breath since last night. We are seeing the patient on telemetry floor for following problems: Atypical chest pain: -Patient's trops and EKG remained negative and his chest pain is more likely to anxiety or gastritis due to alcohol abuse. -Continue omeprazole -Continue aspirin and Lipitor -Continue monitor on telemetry floor. Alcohol withdrawal: -Continue CIWA protocol. -Ativan 1 mg every 6 hourly. -Overnight his CIWA score is zero. -Continue supplemental vitamin. Hypertensive urgency: -Blood pressure is under control -Continue labetalol 100 mg twice a day -Continue lisinopril and hydrochlorothiazide Tachycardia: -Possibly due to anxiety or alcohol induced -We will follow psych recommendations for anxiety. Polyarthralgia: -Probably due to arthritis secondary to viral infection or lyme disease -RA factor is negative -Lyme titer and SVEN are pending. 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 -We will follow his LFTs DVT prophylaxis: Mechanical and subcutaneous heparin CODE STATUS: Full code Problem List: 1. Alcohol withdrawal 2. Transaminitis 3. Hypertensive urgency 4. Chest pain syndrome 5. Arthritis Pain Ratin Pain Location: none Pain Goal: Remain pain free Pain Plan: pain pathway Tomorrow's Labs & Rationales: bep
--- NOTE | 2017-08-19 08:34 | PN- Student ---
Subjective Subjective: No acute events overnight. Patient daksha and examined this morning. Complains of shoulder, wrist, hip, knee pain. Pain is 7/10 with no radiation that is worse in the morning and associated with numbness of the fingers. Also, reported that pain is worse when weight is press in the joins. Complain of palpitation associated with SOB in the mornings and sweating during the night. Denied headache, sore throat, abdominal pain, diarrhea, constipation, nausea/vomiting, dysuria. Objective Objective: Vitals: T= 98.0 HR= 100 BP= 132/88 RR= 18 O2Sat= 97 RA PE: General= alert and oriented without any distress. HEENT= normocephalic, atraumatic, anicteric extraocular muscle intact CVS= normal S1 and S2, no rub or gallop Lungs= bilateral chest expasion, bilateral clear breath sounds Abdomen= present bowel sounds, soft, nontender, nondistended Extremities= no edema or efussion of the joints Neuro= normal speech, intact CN II-XII, normal muscle bulk, intact ROM, painful active and passive ROM in the shoulders, normal strenght Results Results: Laboratory Tests 08/19/17 0610: Anion Gap 13, Estimated GFR > 60, BUN/Creatinine Ratio 24.3, Magnesium 1.8, C- Reactive Prot, Quant 2.2 H Vital Signs Date Time Temp Pulse Resp B/P B/P Pulse O2 O2 Flow FiO2 Mean Ox Delivery Rate 08/19 0817 108 134/88 08/19 0817 108 134/88 08/19 0800 96 16 134/88 08/19 0700 98.0 100 18 132/88 97 Room Air 08/19 0015 88 124/80 08/18 2300 98.1 106 18 106/82 97 Room Air 08/18 2000 98.1 106 18 106/82 08/18 1800 106 08/18 1600 98.1 98 20 124/88 08/18 1600 96 Room Air 08/18 1459 98.1 98 22 124/88 96 08/18 1400 106 Intake & Output 08/19 1600 08/19 0800 08/19 0000 Intake Total 110 580 Output Total Balance 110 580 Intake, IV 10 Intake, Oral 100 580 Patient 214 lb Weight Laboratory Tests 08/19/17 0610: Anion Gap 13, Estimated GFR > 60, BUN/Creatinine Ratio 24.3, Magnesium 1.8 08/18/17 1055: Rheum Factor Semi-Quant 9.6 08/18/17 1055: ESR Westergren 27 H, SVEN Titer Pending, Anti-Nuclear Antibody Pending, Lyme Disease Antibody Pending 08/18/17 0610: Anion Gap 12, Estimated GFR > 60, BUN/Creatinine Ratio 28.8 H, Magnesium 1.8 08/17/17 0500: Anion Gap 15, Estimated GFR > 60, BUN/Creatinine Ratio 21.1, Magnesium 1.5 L, Total Bilirubin 2.1 H, Direct Bilirubin 0.7 H, AST 133 H, ALT 127 H, Alkaline Phosphatase 91, Total Protein 8.6 H, Albumin 4.1, CBC w Diff NO MAN DIFF REQ, RBC 5.37, MCV 85.1, MCH 29.5, MCHC 34.7, RDW 12.6, MPV 9.8, Gran % 77.0 H, Lymphocytes % 13.1 L, Monocytes % 8.4, Eosinophils % 0.9, Basophils % 0.6, Absolute Granulocytes 3.9, Absolute Lymphocytes 0.7 L, Absolute Monocytes 0.4, Absolute Eosinophils 0, Absolute Basophils 0 08/16/17 2300: Troponin I < 0.01 08/16/17 2000: Urine Opiates Screen < 100, Methadone Screen < 40, Barbiturate Screen < 60, Ur Phencyclidine Scrn < 6.00, Amphetamines Screen < 100, U Benzodiazepines Scrn < 85, Urine Cocaine Screen < 50, Urine Cannabis Screen < 5.00 08/16/17 1735: Troponin I < 0.01 08/16/17 1105: Anion Gap 15, Estimated GFR > 60, BUN/Creatinine Ratio 12.0, Glucose 108 H, Calcium 9.0, Magnesium 1.2 L, Total Bilirubin 2.7 H, AST 108 H, ALT 136 H, Alkaline Phosphatase 101, Troponin I < 0.01, Total Protein 9.4 H, Albumin 4.6, Globulin 4.8 H, Albumin/Globulin Ratio 1.0 L, Free T4 1.96, Total T3 1.89 H, TSH &T3 &Free T4 Intrp 6.370 H, PT 12.3, INR 1.13, APTT 28, D-Dimer High Sensitivty 253 H, CBC w Diff NO MAN DIFF REQ, RBC 5.62, MCV 85.6, MCH 29.6, MCHC 34.6, RDW 12.3, MPV 9.2, Gran % 81.9 H, Lymphocytes % 11.2 L, Monocytes % 5.4, Eosinophils % 0.8, Basophils % 0.7, Absolute Granulocytes 4.2, Absolute Lymphocytes 0.6 L, Absolute Monocytes 0.3, Absolute Eosinophils 0, Absolute Basophils 0, Serum Alcohol < 10.0 Assessment/Plan Assessment: 32 y/o M with PMHx of ETOH withdrawal & noncompliant HTNB, seen for evaluation of acute onset of heart palpitation and chest pain. Serial troponin and EKG's unremarkable. Plan: Chest pain -Trop and EKG unremarkable -Cont. Atorvastatin -Cards following -Stress test outpatient Hypertensive urgency -Cont. hydrochlorothiazide, lisinopril, and labetalol -Monitor vitals Alcohol withdrawal -[facility] protocol -Ativan 1 mg Q6 -Supplement thiamine, vit Vitamin B12 and folic acid Join pain (new complaint) -Not clear at this point -DDx: polyarthitis rheumatica, RA (negative Rfactor) -Motrin 800mg Q8 PO Transaminitis -Probably due to alcohol abuse -Monitor LFTs DVT prophylaxis: Mechanical and subcutaneous heparin
--- NOTE | 2017-08-19 10:32 | PN- Att Addend ---
Attending Addendum Attending Brief Note Patient seen and examined. Plan of care discussed with the medical team and the patient. Available lab work and radiology test reports were reviewed. Patient states that he was able to sleep last night but sleep is somewhat disturbed. He complains of for generalized joint aches and pains mostly shoulder and knees. He appears more calm. Exam: General: Patient awake alert oriented without any distress CVS: S1 plus S2 without any murmur or gallops Chest: Few scattered crepitation without any wheeze. There is no respiratory distress. 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 Awake alert oriented without any focal neuro deficit and follows commands appropriately Extremities: No edema; no clubbing or cyanosis noted ; no tremors are noted; range of motion intact in joints. I do not see any inflammation around the root hand joints. However he is tender to palpation especially over both shoulders. Assessment * Alcohol abuse * Alcohol withdrawal * Transaminitis and elevated bilirubin likely due to alcohol abuse * Sleep apnea * Rule out ME and chest pain- negative troponins * Hypokalemia * Persistent tachycardia- likely due to alcohol withdrawal. Note that his free T4 was within normal range. * Polyarthralgia- etiology unclear possibly could be due to withdrawal symptoms; rheumatoid factor is negative and his SVEN and Lyme disease titers are currently pending. Plan * Decrease Ativan to 1 mg by mouth every 6 and CIWA protocol * Continue aspirin and Lipitor; * Continue current BP medications * Continue melatonin for night when necessary for sleep * Check CRP * Plan is noted for outpatient stress testing * Plan for discharge home tomorrow Current Medications Sig/Tasha Start time Last Medication Dose Route Stop Time Status Admin Acetaminophen 650 MG .STK-MED ONE 08/18 1751 DC PO 08/18 175 Acetaminophen 650 MG Q6P PRN 08/16 1545 AC 08/18 PO 1752 Aspirin 81 MG DAILY 08/17 0900 AC 08/19 PO 0817 Atorvastatin Calcium 40 MG 1700 08/16 1700 AC 08/18 PO 1748 Heparin Sodium 5,000 UNIT Q8 08/16 2200 AC 08/19 (Porcine) SC 0636 Hydrochlorothiazide 12.5 MG DAILY 08/17 0900 AC 08/19 PO 0817 Ibuprofen 800 MG Q8P PRN 08/19 1000 AC PO Ibuprofen 600 MG .STK-MED ONE 08/18 2012 DC PO 08/18 2013 Ibuprofen 800 MG Q6P PRN 08/18 0830 DC 08/19 PO 0641 Labetalol HCl 100 MG BID 08/17 2100 AC 08/19 PO 0817 Lisinopril 10 MG DAILY 08/17 0900 AC 08/19 PO 0817 Lorazepam 1 MG Q6 08/19 1200 AC PO Lorazepam 2 MG Q6 08/18 1800 DC 08/19 PO 0636 Lorazepam 3 MG Q6 08/17 1200 DC 08/18 PO 1158 Lorazepam 1 MG Q2P PRN 08/16 1545 AC 08/17 PO 0436 Magnesium Oxide 400 MG ONE ONE 08/19 1030 DC PO 08/19 1031 Magnesium Oxide 400 MG BID 08/17 0900 AC 08/19 PO 0817 Melatonin 5 MG AT BEDTIME 08/17 2100 AC 08/19 PO 0015 Multivitamins 1 TAB DAILY 08/16 1541 AC 08/19 PO 0817 Omeprazole 40 MG DAILY AC 08/18 1820 CAN PO Omeprazole 40 MG DAILY AC 08/18 0700 AC 08/19 PO 0637 Laboratory Tests 08/19/17 0610: Anion Gap 13, Estimated GFR > 60, BUN/Creatinine Ratio 24.3, Magnesium 1.8 08/18/17 1055: Rheum Factor Semi-Quant 9.6 08/18/17 1055: ESR Westergren 27 H, SVEN Titer Pending, Anti-Nuclear Antibody Pending, Lyme Disease Antibody Pending 08/18/17 0610: Anion Gap 12, Estimated GFR > 60, BUN/Creatinine Ratio 28.8 H, Magnesium 1.8 08/17/17 0500: Anion Gap 15, Estimated GFR > 60, BUN/Creatinine Ratio 21.1, Magnesium 1.5 L, Total Bilirubin 2.1 H, Direct Bilirubin 0.7 H, AST 133 H, ALT 127 H, Alkaline Phosphatase 91, Total Protein 8.6 H, Albumin 4.1, CBC w Diff NO MAN DIFF REQ, RBC 5.37, MCV 85.1, MCH 29.5, MCHC 34.7, RDW 12.6, MPV 9.8, Gran % 77.0 H, Lymphocytes % 13.1 L, Monocytes % 8.4, Eosinophils % 0.9, Basophils % 0.6, Absolute Granulocytes 3.9, Absolute Lymphocytes 0.7 L, Absolute Monocytes 0.4, Absolute Eosinophils 0, Absolute Basophils 0 08/16/17 2300: Troponin I < 0.01 08/16/17 2000: Urine Opiates Screen < 100, Methadone Screen < 40, Barbiturate Screen < 60, Ur Phencyclidine Scrn < 6.00, Amphetamines Screen < 100, U Benzodiazepines Scrn < 85, Urine Cocaine Screen < 50, Urine Cannabis Screen < 5.00 08/16/17 1735: Troponin I < 0.01 08/16/17 1105: Anion Gap 15, Estimated GFR > 60, BUN/Creatinine Ratio 12.0, Glucose 108 H, Calcium 9.0, Magnesium 1.2 L, Total Bilirubin 2.7 H, AST 108 H, ALT 136 H, Alkaline Phosphatase 101, Troponin I < 0.01, Total Protein 9.4 H, Albumin 4.6, Globulin 4.8 H, Albumin/Globulin Ratio 1.0 L, Free T4 1.96, Total T3 1.89 H, TSH &T3 &Free T4 Intrp 6.370 H, PT 12.3, INR 1.13, APTT 28, D-Dimer High Sensitivty 253 H, CBC w Diff NO MAN DIFF REQ, RBC 5.62, MCV 85.6, MCH 29.6, MCHC 34.6, RDW 12.3, MPV 9.2, Gran % 81.9 H, Lymphocytes % 11.2 L, Monocytes % 5.4, Eosinophils % 0.8, Basophils % 0.7, Absolute Granulocytes 4.2, Absolute Lymphocytes 0.6 L, Absolute Monocytes 0.3, Absolute Eosinophils 0, Absolute Basophils 0, Serum Alcohol < 10.0 Vital Signs Date Time Temp Pulse Resp B/P B/P Pulse O2 O2 Flow FiO2 Mean Ox Delivery Rate 08/19 0817 108 134/88 08/19 0817 108 134/88 08/19 0700 98.0 100 18 132/88 97 Room Air 08/19 0015 88 124/80 08/18 2300 98.1 106 18 106/82 97 Room Air 08/18 2000 98.1 106 18 106/82 08/18 1800 106 08/18 1600 98.1 98 20 124/88 08/18 1600 96 Room Air 08/18 1459 98.1 98 22 124/88 96 08/18 1400 106 08/18 1200 101 Intake & Output 08/19 1600 08/19 0800 08/19 0000 Intake Total 110 580 Output Total Balance 110 580 Intake, IV 10 Intake, Oral 100 580 Patient 214 lb Weight
--- NOTE | 2017-08-19 13:27 | ECHOCARDIOGRAM REPORT ---
KENNETHSENA KATHI Age: 32 : 1985 Gender: M Exam Date: 08/18/2017 10:26 Exam Location: [address] Ht (in): 72 Wt (lb): 304 BSA: 2.71 BP: 120 / 90 Ordering Physician: Gabriela Lindsay MD Referring Physician: Felton Celis MD Technologist: [email or web address] Room Number: [id number] Indications: ARRHYTHMIAS Rhythm: Sinus Technical Quality: Fair FINDINGS Left Ventricle Normal size left ventricle. Mild concentric left ventricular hypertrophy. No obvious regional wall motion abnormalities. Normal left ventricular ejection fraction visually estimated at 55%. Abnormal relaxation filling pattern of the left ventricle for age (stage 1 diastolic dysfunction). Right Ventricle Normal right ventricular size and function. Right Atrium Normal right atrial size. Left Atrium Normal left atrial size. Mitral Valve Mild mitral annular calcification. Structurally normal mitral valve. Trace mitral regurgitation. Aortic Valve Structurally normal trileaflet aortic valve. No aortic stenosis. Trace aortic regurgitation. Tricuspid Valve Structurally normal tricuspid valve. Trace tricuspid regurgitation. Unable to estimate the right ventricular systolic pressure. Pulmonic Valve Pulmonic valve not well visualized, grossly normal. Mild pulmonic regurgitation. Pericardium No pericardial effusion. Great Vessels Normal size aortic root. CONCLUSIONS Normal size left ventricle. Mild concentric left ventricular hypertrophy. Normal left ventricular ejection fraction visually estimated at 55%. Abnormal relaxation filling pattern of the left ventricle for age (stage 1 diastolic dysfunction). Normal right ventricular size and function. Normal atrial size. Trace mitral regurgitation. Trace aortic regurgitation. Trace tricuspid regurgitation. Unable to estimate the right ventricular systolic pressure. Mild pulmonic regurgitation. Felton Celis M.D. (Electronically Signed) Final Date: 19 August 2017 13:26 MEASUREMENTS (Male / Female) Normal Values 2D ECHO LV Diastolic Diameter PLAX 4.9 cm 4.2 - 5.9 / 3.9 - 5.3 cm LV Systolic Diameter PLAX 3.5 cm 2.1 - 4.0 cm LV Fractional Shortening PLAX 28.6 % 25 - 46 % LV Ejection Fraction 2D Teich 54.9 % IVS Diastolic Thickness 1.1 cm LVPW Diastolic Thickness 1.1 cm LV Relative Wall Thickness 0.4 LVOT Diameter 2.3 cm Aortic Root Diameter 3.1 cm LA Systolic Diameter LX 3.8 cm 3.0 - 4.0 / 2.7 - 3.8 cm LA Volume 54.0 cm 18 - 58 / 22 - 52 cm Ascending Aorta Diameter 3.1 cm DOPPLER AV Peak Velocity 109.0 cm/s AV Peak Gradient 4.8 mmHg AV Mean Velocity 81.0 cm/s AV Mean Gradient 3.0 mmHg AV Velocity Time Integral 16.4 cm AI Deceleration Hyde 91.6 cm/s AI Peak Velocity 297.0 cm/s AI Pressure Half Time 951.0 ms AI Peak Gradient 35.3 mmHg LVOT Peak Velocity 79.0 cm/s LVOT Peak Gradient 2.5 mmHg LVOT Mean Velocity 55.9 cm/s LVOT Mean Gradient 2.0 mmHg LVOT Velocity Time Integral 11.2 cm LVOT Stroke Volume 46.5 cm AV Area Cont Eq vti 2.8 cm AV Area Cont Eq pk 3.0 cm MV Peak Velocity 89.6 cm/s MV Peak Gradient 3.2 mmHg MV Mean Velocity 64.3 cm/s MV Mean Gradient 2.0 mmHg Mitral E Point Velocity 57.9 cm/s Mitral A Point Velocity 91.0 cm/s Mitral E to A Ratio 0.6 MV Deceleration Time 45.0 ms PV Peak Velocity 84.1 cm/s PV Peak Gradient 2.8 mmHg PV Mean Velocity 61.7 cm/s PV Mean Gradient 2.0 mmHg PV Velocity Time Integral 14.1 cm LV E' Lateral Velocity 8.4 cm/s Mitral E to LV E' Lateral Ratio 6.9 LV E' Septal Velocity 9.8 cm/s Mitral E to LV E' Septal Ratio 5.9
[2017-08-20 07:23] VITALS: BP 120/64
--- NOTE | 2017-08-20 07:32 | PN- Student ---
Subjective Subjective: No acute events overnight. Patient seen and examiend this morning. Complains of joint pain 07/06 without radiation. Reported that the joint pain is better than yesterdays after he received motrin. Patient denied headache, blurry vision, chest pain, SOB, abrominal pain, nausea/vomiting, diarrhea, fever. Objective Objective: PE: General= in no acute distress HEENT= NCAT, EOMI, moist oral mucosa, no exudate Neck= no lymphadenopathy, no JVD CVS= regular rate and rythm, normal S1 and S2, no rub or gallop Lungs= symetrical chest expansion, bilateral clear sounds Abdomen= bowel sounds present, soft, nonender, nondistended Extremities= no peripheral edema Results Results: Vital Signs Date Time Temp Pulse Resp B/P B/P Pulse O2 O2 Flow FiO2 Mean Ox Delivery Rate 08/20 0723 98.6 71 20 120/64 96 Room Air 08/19 2230 97.7 97 16 118/62 97 Room Air 08/19 2142 97.8 91 118/62 08/19 2130 90 118/62 08/19 1800 97.9 98 18 118/70 08/19 1436 98.3 80 20 126/70 96 08/19 1200 108 130/80 08/19 0817 108 134/88 08/19 0817 108 134/88 08/19 0800 96 16 134/88 Intake & Output 08/20 0800 08/20 0000 08/19 1600 Intake Total 480 1510 600 Output Total Balance 480 1510 600 Intake, IV 10 Intake, Oral 480 1500 600 Number 0 Bowel Movements Patient 314 lb Weight Laboratory Tests 08/20/17 0625: Sodium Pending, Potassium Pending, Chloride Pending, Carbon Dioxide Pending, Anion Gap Pending, BUN Pending, Creatinine Pending, BUN/Creatinine Ratio Pending , Magnesium Pending 08/19/17 0610: Anion Gap 13, Estimated GFR > 60, BUN/Creatinine Ratio 24.3, Magnesium 1.8, C- Reactive Prot, Quant 2.2 H 08/18/17 1055: Rheum Factor Semi-Quant 9.6 08/18/17 1055: ESR Westergren 27 H, SVEN Titer Pending, Anti-Nuclear Antibody Pending, Lyme Disease Antibody 0.41 08/18/17 0610: Anion Gap 12, Estimated GFR > 60, BUN/Creatinine Ratio 28.8 H, Magnesium 1.8 Assessment/Plan Assessment: 32 y/o adopted M with PHMx of alcohol abuse and noncompliant HTN, who presented to the ED with chest pain and HTN urgency. Serial troponin and EKG's are unremarkable. ECHO showerd stage 1 dystolic dysfuncion with EF of 55% but limited-Unable to estimate the right ventricular systolic pressure. Plan: HTN -Cont. current treatment Alcohol withdraw -Ativan 1mg Q6 PO Joint pain -Motrin 800mg Q8 PO
[2017-08-20 08:00] VITALS: BP 150/98
[2017-08-20 09:17] VITALS: BP 150/112
--- NOTE | 2017-08-20 09:19 | PN- Housestaff ---
Subjective Follow-up For: etoh withdrawal atypical chest pain Tele-Events Since Last Visit: sinus rhythm no events Subjective: no complaints this morning no significant withdrawal symptoms Review of Systems Constitutional: Reports: see HPI. Objective Last 24 Hrs of Vital Signs/I&O Vital Signs Date Time Temp Pulse Resp B/P B/P Pulse O2 O2 Flow FiO2 Mean Ox Delivery Rate 08/20 1000 98.4 90 16 140/98 08/20 0917 97.0 86 20 150/112 98 Room Air 08/20 0831 100 150/110 08/20 0831 100 150/110 08/20 0800 97.6 100 16 150/98 08/20 0723 98.6 71 20 120/64 96 Room Air 08/19 2230 97.7 97 16 118/62 97 Room Air 08/19 2142 97.8 91 118/62 08/19 2130 90 118/62 08/19 1800 97.9 98 18 118/70 08/19 1436 98.3 80 20 126/70 96 Intake & Output 08/20 1600 08/20 0800 08/20 0000 Intake Total 480 1510 Output Total Balance 480 1510 Intake, IV 10 Intake, Oral 480 1500 Number 0 Bowel Movements Patient 142.485 kg Weight Physical Exam General Appearance: Alert, Oriented X3, Cooperative, No Acute Distress Cardiovascular: Regular Rate, Normal S1, Normal S2, No Murmurs Lungs: Clear to Auscultation, Normal Air Movement Abdomen: Normal Bowel Sounds, Soft, No Tenderness, No Masses Extremities: No Clubbing, No Cyanosis, No Edema, Normal Pulses Current Medications: Current Medications Sig/Tasha Start time Last Medication Dose Route Stop Time Status Admin Acetaminophen 650 MG Q6P PRN 08/16 1545 DCD 08/18 PO 1752 Aspirin 81 MG DAILY 08/17 09 DCD 08/20 PO 0831 Atorvastatin Calcium 40 MG 1700 08/16 1700 DCD 08/19 PO 1716 Heparin Sodium 5,000 UNIT Q8 08/16 2200 DCD 08/20 (Porcine) SC 0556 Hydrochlorothiazide 12.5 MG DAILY 08/17 09 DCD 08/20 PO 0832 Ibuprofen 800 MG Q8P PRN 08/19 1000 DCD 08/20 PO 0833 Labetalol HCl 100 MG BID 08/17 2100 DCD 08/20 PO 0831 Lisinopril 10 MG DAILY 08/17 0900 DCD 08/20 PO 0831 Lorazepam 1 MG Q6 08/19 1200 DCD 08/20 PO 1146 Lorazepam 1 MG Q2P PRN 08/16 1545 DCD 08/17 PO 0436 Magnesium Oxide 400 MG BID 08/17 0900 DCD 08/20 PO 0830 Melatonin 5 MG AT BEDTIME PRN 08/19 2300 DCD PO Melatonin 5 MG ONCE ONE 08/19 2300 DC 08/19 PO 08/19 2301 2307 Melatonin 5 MG AT BEDTIME 08/17 2100 DCD 08/19 PO 2127 Multivitamins 1 TAB DAILY 08/16 1541 DCD 08/20 PO 0831 Omeprazole 40 MG DAILY AC 08/18 0700 DCD 08/20 PO 0555 Patient Medication 1 ED ONE ONE 08/19 171 NC 08/19 Teaching ED 08/19 171 1716 Last 24 Hrs of Lab/Sage Results Last 24 Hrs of Labs/Mics: Laboratory Tests 08/20/17 0625: Anion Gap 14, Estimated GFR > 60, BUN/Creatinine Ratio 21.7, Magnesium 1.8 Assessment/Plan Assessment: 32 YO M ex-smoker (quit 5 yrs back, 1pack/d) with past medical history of hypertension noncompliant to medication, alcohol abuse, obstructive sleep apnea and anxiety came to the ED with chief complaint of chest tightness, palpitation and shortness of breath since last night. We are seeing the patient on telemetry floor for following problems: Atypical chest pain: -Patient's trops and EKG remained negative and his chest pain is more likely to anxiety or gastritis due to alcohol abuse. -Continue omeprazole -Continue aspirin and Lipitor -Continue monitor on telemetry floor. Alcohol withdrawal: -Continue CIWA protocol. -Ativan taper -CIWA score is zero. -Continue supplemental vitamin. Hypertensive urgency: -Blood pressure is under control -Continue labetalol 100 mg twice a day -Continue lisinopril and hydrochlorothiazide Tachycardia: -Possibly due to anxiety or alcohol induced -We will follow psych recommendations for anxiety. Polyarthralgia: -Probably due to arthritis secondary to viral infection or lyme disease -RA factor is negative -Lyme titer negative -SVEN are pending. 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 Heart healthy diet DVT ppx-ALPs and subcutaneous heparin Full code Problem List: 1. Alcohol withdrawal 2. Transaminitis 3. Alcohol dependence 4. Alcohol abuse 5. Chest pain syndrome Pain Ratin Pain Location: n/a Pain Goal: Pain 4 or less Pain Plan: prn Tomorrow's Labs & Rationales: none, discharge
[2017-08-20 10:00] VITALS: BP 140/98
--- NOTE | 2017-08-20 10:59 | PN- Att Addend ---
Attending Addendum Attending Brief Note Patient seen and examined. Plan of care discussed with the medical team and the patient. Available lab work and radiology test reports were reviewed. Patient feels well. His joint pain has improved. He denies any tremor hallucinations or agitation. Exam: General: Patient awake alert oriented without any distress CVS: S1 plus S2 without any murmur or gallops Chest: Few scattered crepitation without any wheeze. There is no respiratory distress. 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 Awake alert oriented without any focal neuro deficit and follows commands appropriately Extremities: No edema; no clubbing or cyanosis noted ; no tremors are noted; Assessment * Alcohol abuse * Alcohol withdrawal * Transaminitis and elevated bilirubin likely due to alcohol abuse * Sleep apnea * Rule out IA and chest pain- negative troponins * Hypokalemia * Persistent tachycardia- likely due to alcohol withdrawal. Note that his free T4 was within normal range. * Polyarthralgia- etiology unclear possibly could be due to withdrawal symptoms; rheumatoid factor is negative and his SVEN pending and Lyme disease titers were negative. Plan * Decrease Ativan to 0.5 mg by mouth 3 times a day today and twice a day tomorrow and then stop; * Continue current BP medications * Continue melatonin for night when necessary for sleep * Plan for outpatient stress testing; patient was told to follow with Dr. Espinosa * Plan for discharge home; patient currently clinically stable for discharge * Patient has been seen by social media manager and patient plans to discuss is a alcohol abuse with his PCP. Current Medications Sig/Tasha Start time Last Medication Dose Route Stop Time Status Admin Acetaminophen 650 MG Q6P PRN 08/16 1545 AC 08/18 PO 1752 Aspirin 81 MG DAILY 08/17 0900 AC 08/20 PO 0831 Atorvastatin Calcium 40 MG 1700 08/16 1700 AC 08/19 PO 1716 Heparin Sodium 5,000 UNIT Q8 08/16 2200 AC 08/20 (Porcine) SC 0556 Hydrochlorothiazide 12.5 MG DAILY 08/17 0900 AC 08/20 PO 0832 Ibuprofen 800 MG Q8P PRN 08/19 1000 AC 08/20 PO 0833 Labetalol HCl 100 MG BID 08/17 2100 AC 08/20 PO 0831 Lisinopril 10 MG DAILY 08/17 0900 AC 08/20 PO 0831 Lorazepam 1 MG Q6 08/19 1200 AC 08/20 PO 0556 Lorazepam 1 MG Q2P PRN 08/16 1545 AC 08/17 PO 0436 Magnesium Oxide 400 MG BID 08/17 0900 AC 08/20 PO 0830 Melatonin 5 MG AT BEDTIME PRN 08/19 2300 AC PO Melatonin 5 MG ONCE ONE 08/19 2300 DC 08/19 PO 08/19 230 2307 Melatonin 5 MG AT BEDTIME 08/17 2100 AC 08/19 PO 2127 Multivitamins 1 TAB DAILY 08/16 1541 AC 08/20 PO 0831 Omeprazole 40 MG DAILY AC 08/18 0700 AC 08/20 PO 0555 Patient Medication 1 ED ONE ONE 08/19 1715 DC 08/19 Teaching ED 08/19 171 1716 Laboratory Tests 08/20/17 0625: Anion Gap 14, Estimated GFR > 60, BUN/Creatinine Ratio 21.7, Magnesium 1.8 08/19/17 0610: Anion Gap 13, Estimated GFR > 60, BUN/Creatinine Ratio 24.3, Magnesium 1.8, C- Reactive Prot, Quant 2.2 H 08/18/17 1055: Rheum Factor Semi-Quant 9.6 08/18/17 1055: ESR Westergren 27 H, SVEN Titer Pending, Anti-Nuclear Antibody Pending, Lyme Disease Antibody 0.41 08/18/17 0610: Anion Gap 12, Estimated GFR > 60, BUN/Creatinine Ratio 28.8 H, Magnesium 1.8 Vital Signs Date Time Temp Pulse Resp B/P B/P Pulse O2 O2 Flow FiO2 Mean Ox Delivery Rate 08/20 0817 97.0 86 20 150/112 98 Room Air 08/20 0831 100 150/110 08/20 0831 100 150/110 08/20 0800 97.6 100 16 150/98 08/20 0723 98.6 71 20 120/64 96 Room Air 08/19 2230 97.7 97 16 118/62 97 Room Air 08/19 2142 97.8 91 118/62 08/19 2130 90 118/62 08/19 1800 97.9 98 18 118/70 08/19 1436 98.3 80 20 126/70 96 08/19 1200 108 130/80 Intake & Output 08/20 1600 08/20 0800 08/20 0000 Intake Total 480 1510 Output Total Balance 480 1510 Intake, IV 10 Intake, Oral 480 1500 Number 0 Bowel Movements Patient 314 lb Weight Total time spent in preparation for discharge plan, patient education, and CMR preparation was 35 minutes.
--- NOTE | 2017-08-20 11:12 | PN- Student ---
Silke Saldaña 08/20/17 1043: Subjective Subjective: Pt is a 32yo M presenting to the ED with chest pain 4 days ago. Psych consult was requested for anxiety. Pt reports drinking 3-4 drinks of rum on his days off from work and his last drink was last Saturday. He notes that he drinks due to boredom, to "cope with work", and due to stress at home due to living situation. His ex of 12 years possibly moving out with their 2 children. Previous substance use includes smoking marijuana (quit in 2005) and occasional cocaine use in high school. He denies current auditory hallucinations but notes hearing phones and noises from work upon awakening. He denies current visual hallucinations but reports occasionally seeing grandparents who in 2004 and shadows in the corner of eye. He rates depressed mood 5/10, anxiety 8/10, sad mood 5/10; 10/10 is worst. He feels helpless, worthless, and guilty. Denies feeling hopeless. He reports progressing from feeling sad to depressed to worthless a couple of times per week. He feels guilty about not being able to support children. Denies active SI, HI. However, reports passive SI ("what would happen if I wasn't here anymore") a couple of months ago. Pt reports support system of , girlfriend, and friends from work. Notes normal appetite, sleep is adequate and restful, good level of energy. Pt appears stated age, well-dressed. He was cooperative and had appropriate psychomotor activity. His behavior and affect were appropriate for the situation. His speech was not pressured and was at appropriate volume. He feels "anxious". He was alert, attentive, and Ox3. Pt had logical thought process and showed normal insight and judgment. Objective Objective: Current Medications Sig/Tasha Start time Last Medication Dose Route Stop Time Status Admin Acetaminophen 650 MG Q6P PRN 08/16 1545 AC 08/18 PO 1752 Aspirin 81 MG DAILY 08/17 0900 AC 08/20 PO 0831 Atorvastatin Calcium 40 MG 1700 08/16 1700 AC 08/19 PO 1716 Heparin Sodium 5,000 UNIT Q8 08/16 2200 AC 08/20 (Porcine) SC 0556 Hydrochlorothiazide 12.5 MG DAILY 08/17 0900 AC 08/20 PO 0832 Ibuprofen 800 MG Q8P PRN 08/19 1000 AC 08/20 PO 0833 Labetalol HCl 100 MG BID 08/17 2100 AC 08/20 PO 0831 Lisinopril 10 MG DAILY 08/17 0900 AC 08/20 PO 0831 Lorazepam 1 MG Q6 08/19 1200 AC 08/20 PO 0556 Lorazepam 1 MG Q2P PRN 08/16 1545 AC 08/17 PO 0436 Magnesium Oxide 400 MG BID 08/17 0900 AC 08/20 PO 0830 Melatonin 5 MG AT BEDTIME PRN 08/19 2300 AC PO Melatonin 5 MG ONCE ONE 08/19 2300 DC 08/19 PO 08/19 2300 2307 Melatonin 5 MG AT BEDTIME 08/17 2100 AC 08/19 PO 2127 Multivitamins 1 TAB DAILY 08/16 1541 AC 08/20 PO 0831 Omeprazole 40 MG DAILY AC 08/18 0700 AC 08/20 PO 0555 Patient Medication 1 ED ONE ONE 08/19 1715 [place] 08/19 Teaching ED 08/19 1716 1716 Laboratory Tests 08/20 08/19 08/18 08/18 0625 0610 1055 1055 Chemistry Sodium (137 - 145 mmol/L) 138 138 Potassium (3.5 - 5.1 mmol/L) 4.2 4.2 Chloride (98 - 107 mmol/L) 98 99 Carbon Dioxide (22 - 30 mmol/L) 26 26 Anion Gap (5 - 16) 14 13 BUN (9 - 20 mg/dL) 13 17 Creatinine (0.7 - 1.2 mg/dL) 0.6 L 0.7 Estimated GFR (>60 ml/min) > 60 > 60 BUN/Creatinine Ratio (7 - 25 %) 21.7 24.3 Magnesium (1.6 - 2.3 mg/dL) 1.8 1.8 C-Reactive Prot, Quant (<1.0 mg/dL) 2.2 H Hematology ESR Westergren (0 - 10 MM) 27 H Immunology Rheum Factor Semi-Quant (<12 IU/Ml) 9.6 SVEN Titer Anti-Nuclear Antibody (NEG,1:40) POS BY IFA ASSAY Serology Lyme Disease Antibody (RATIO) 0.41 08/18 0610 Chemistry Sodium (137 - 145 mmol/L) 137 Potassium (3.5 - 5.1 mmol/L) 4.3 Chloride (98 - 107 mmol/L) 100 Carbon Dioxide (22 - 30 mmol/L) 25 Anion Gap (5 - 16) 12 BUN (9 - 20 mg/dL) 23 H Creatinine (0.7 - 1.2 mg/dL) 0.8 Estimated GFR (>60 ml/min) > 60 BUN/Creatinine Ratio (7 - 25 %) 28.8 H Magnesium (1.6 - 2.3 mg/dL) 1.8 Results Results: Laboratory Tests 08/20/17 0625: Anion Gap 14, Estimated GFR > 60, BUN/Creatinine Ratio 21.7, Magnesium 1.8 08/19/17 0610: Anion Gap 13, Estimated GFR > 60, BUN/Creatinine Ratio 24.3, Magnesium 1.8, C- Reactive Prot, Quant 2.2 H 08/18/17 1055: Rheum Factor Semi-Quant 9.6 08/18/17 1055: ESR Westergren 27 H, SVEN Titer Pending, Anti-Nuclear Antibody Pending, Lyme Disease Antibody 0.41 08/18/17 0610: Anion Gap 12, Estimated GFR > 60, BUN/Creatinine Ratio 28.8 H, Magnesium 1.8 Assessment/Plan Assessment: Patient has been here for 4 days, discharging today. Alchohol detox appeared uneventful and he appeared cooperative throughout. He showed interest in attending substance use and mental health programs. Patient notes stressors in life (work, partner moving out with children), however notes strengths that include desire to help others and support children. Plan: Intake appt at [facility] on 08/26 at 2pm with [facility] at [facility] Isaiah Morris, ph: [phone] Patient was given a list of AA resources in [place]. Please give the patient no more than the last day of his lorazepam detox taper, usually 0.5mg PO Q6H. Thank you for the consult.
[2017-08-20] MEDS ORDERED: HYDROCHLOROTH12.5 M2 PO (11:13)
[2017-08-20] MEDS ORDERED: LISINOPRIL10 M1 PO (11:13)
[2017-08-20] MEDS ORDERED: ASPIRIN EC81 M1 PO (11:13)
[2017-08-20] MEDS ORDERED: ONE-TABLET-DAI1 EACH PO (11:13)
[2017-08-20] MEDS ORDERED: ATORVASTATIN CA40 M1 PO (11:13)
[2017-08-20] MEDS ORDERED: LABETALOL HCL100 M1 PO (11:13)
[2017-08-20] MEDS ORDERED: B-1100 MG PO (11:13)
[2017-08-20] MEDS ORDERED: ATIVAN0.5 M1 PO (11:13)
--- NOTE | 2017-08-20 11:16 | Patient Discharge Instructions ---
Discharge Instructions General Discharge Information You were seen/treated for: alcohol withdrawal and chest pain Special Instructions: Follow up with your new primary care physician. Referred for outpatient follow up for alcohol dependence. Follow up with Dr. Espinosa cardiology for blood pressure management and further evaluation of heart disease with stress test. Acute Coronary Syndrome Inclusion Criteria At DC or during hospital stay patient has or had the following: ACS DIAGNOSIS No Discharge Core Measures Meds if any: Prescribed or Continued at Discharge Meds if any: NOT Prescribed or Continued at Discharge Congestive Heart Failure Inclusion Criteria At DC or during hospital stay patient has or had the following: CHF DIAGNOSIS No Discharge Core Measures Meds if any: Prescribed or Continued at Discharge Meds if any: NOT Prescribed or Continued at Discharge Cerebrovascular accident Inclusion Criteria At DC or during hospital stay patient has or had the following: CVA/TIA Diagnosis No Discharge Core Measures Meds if any: Prescribed or Continued at Discharge Meds if any: NOT Prescribed or Continued at Discharge Venous thromboembolism Inclusion Criteria VTE Diagnosis No VTE Type NONE VTE Confirmed by (Test) NONE Discharge Core Measures - Per Current guidelines, there needs to be overlap - treatment for the first 5 days of Warfarin therapy. - If discharged on Warfarin prior to 5 days of - overlap therapy, the patient will need to be - assessed for post discharge needs including - *Post discharge parental anticoagulation - *Warfarin and/or parental anticoagulation education - *Follow up date to check INR post discharge At least 5 days overlap therapy as Inpatient No Meds if any: Prescribed or Continued at Discharge Note: Overlap Therapy is Warfarin and Anticoagulant Meds if any: NOT Prescribed or Continued at Discharge
--- NOTE | 2017-08-20 12:11 | Discharge Summary ---
Visit Information Visit Dates Admission Date: 08/16/17 Discharge Date: 08/20/17 Hospital Course Course Attending Physician: Samuel MEEK MPH, [facility] Primary Care Physician: Layla MEEK, [facility] Hospital Course: 32 year old male former smoker with past medical history significant for hypertension and obstructive sleep apnea (noncompliant with medications and CPAP ), anxiety, and alcohol abuse (previous detox with 1 year of sobriety no inpatient or IOP treatments) presented with complaints of chest tightness, palpitations and dyspnea that developed during self alcohol detoxification at home. The patient was admitted and monitored on telemetry for his chest pain and alcohol withdrawal. Serial troponins and EKGs were negative for myocardial ischemia. His chest pain is likely related to anxiety or gastritis from alcohol abuse. Cardiology was consulted. He was started on aspirin, statin, and a proton pump inhibitor. He does have risk factors including smoking, poorly controlled hypertension, and is noncompliant with sleep apnea treatment, therefore a stress test can be pursued as an outpatient. His blood pressure was better but remained elevated with labetalol, HCTZ, and lisinopril. In terms of the patient's alcohol withdrawal, he was treated with a gradual ativan taper over four days and discharged with two days of ativan to complete the taper. The day of discharge he wasn't exhibiting any signs or symptoms of withdrawal. Social work was consulted for aftercare. The patient was referred to intensive outpatient and individual therapy but was reportedly not interested in self help groups. He states he is having significant work stress. He was discharged with supplemental vitamins and thiamine. He did have abnormal liver function tests that should be repeated as an outpatient after alcohol abstinence. Urine toxicology was negative. He also complained of some polyarthralgias- CRP was elevated to 2, SVEN was positive, but rheumatoid factor and lyme titers were negative. This can be further investigated as an outpatient. He was given a referral to Dr. Rich for a primary care provider and Dr. Espinosa (cardiology) for further management of blood pressure and possible outpatient stress testing. Allergies: Coded Allergies: NO KNOWN ALLERGIES (10/13/14) Disposition Summary Disposition Principal Diagnosis: Alcohol withdrawal Alcohol dependence Chest pain Additional Diagnosis: Hypertension, noncompliant with medications Tachycardia in the setting of alcohol withdrawal Obstructive sleep apnea, noncompliant with CPAP Transaminitis with elevated bilirubin Polyarthralgia Discharge Disposition: home or self care Discharge Instructions General Discharge Information Code Status: Full Code Patient's Diet: Heart healthy diet Patient's Activity: No limitations Follow-Up Instructions/Appts: Please follow up with your primary care physician and Dr. Espinosa (cardiology) for an outpatient stress test. Please follow up with referrals for alcohol abuse treatment. Medications at Discharge Discharge Medications: Continue taking these medications: Fluticasone Propionate (Fluticasone Propionate) 50 MCG/ACTUATION SPRAY.SUSP 2 [place] Both sides of nose DAILY as needed for ALLERGIES Comments: DID NOT RECIEVE IN HOSPITAL Multiple Vitamin (Multivitamins) 1 EACH TABLET 1 Tablet ORAL DAILY Comments: Last Taken: 08/20/17 Time: 9 AM Start taking the following new medications: Lorazepam (Ativan) 0.5 MG TABLET 1 Tablet ORAL As Directed Qty = 5 No Refills Instructions: TAKE THREE TABS 08/21/17 THEN TWO TABS 08/22/17 THEN STOP Comments: Last Taken: 08/20/17 Time: NOON RECIEVED 1 MG Lisinopril (Lisinopril) 10 MG TABLET 1 Tablet ORAL DAILY Qty = 30 No Refills Comments: Last Taken: 08/20/17 Time: 9 AM Aspirin (Ecotrin*) 81 MG TABLET. 1 Tablet ORAL DAILY Qty = 30 No Refills Comments: Last Taken: 08/20/17 Time: 9 AM Labetalol HCl (Labetalol HCl) 100 MG TABLET 1 Tablet ORAL TWICE DAILY Qty = 60 No Refills Comments: Last Taken: 08/20/17 Time: 9AM Atorvastatin Calcium (Atorvastatin Calcium) 40 MG TABLET 1 Tablet ORAL DAILY Qty = 30 No Refills Comments: Last Taken: 08/19/17 Time: 5 PM Hydrochlorothiazide (Hydrochlorothiazide) 12.5 MG TABLET 1 Tablet ORAL DAILY Qty = 30 No Refills Comments: Last Taken: 08/20/17 Time: 9 AM Multivitamin ([id number]-[id number]) 1 EACH TABLET 1 Tablet ORAL DAILY Qty = 30 No Refills Comments: Last Taken: 08/20/17 Time: 9 AM Thiamine HCl (B-1) 100 MG TABLET 1 Tablet ORAL DAILY Qty = 30 No Refills Comments: DID NOT RECIEVE Copies To: Layla MEEK,Gisele Vásquez; Jesús MEEK PHD,Kelvin Rader Attending MD Review Statement Documenting Attending: Samuel MEEK,Mary
== END 2017-08-20 12:21 | DRG 897 ==
LOC: ERH 10:23 → ERHI 14:15 → 1NO 14:15 → ENRESERV 15:43 → ENTRNSPT 18:58 → EDTRNSPTSTS 19:08 → EDTRNSPT 19:08 → 1NO 19:20 → CMPTRNSPT 19:26 → 1NO 08-18 14:53 → ENPENDDIS 08-20 11:26 → 1NO 08-20 12:21
PROVIDERS: Internal Medicine Interventional Cardiology; Physician Assistant Medical
PROC: HZ89ZZZ Medication Management for Substance Abuse Treatment, Other Replacement Medication (ICD-10-PCS; principal; 2017-08-16)
PROC: HZ2ZZZZ Detoxification Services for Substance Abuse Treatment (ICD-10-PCS; principal; 2017-08-16)
PROC: HZ99ZZZ Pharmacotherapy for Substance Abuse Treatment, Other Replacement Medication (ICD-10-PCS; principal; 2017-08-16)
DX: F10.239 Alcohol dependence with withdrawal, unspecified (principal); Z68.41 Body mass index [BMI] 40.0-44.9, adult; K29.20 Alcoholic gastritis without bleeding; Y90.0 Blood alcohol level of less than 20 mg/100 ml; I16.0 Hypertensive urgency; Z87.891 Personal history of nicotine dependence; E66.9 Obesity, unspecified; Z91.14 Patient's other noncompliance with medication regimen; G47.33 Obstructive sleep apnea (adult) (pediatric); T51.91XA Toxic effect of unspecified alcohol, accidental (unintentional), initial encounter; R00.2 Palpitations; Y92.009 Unspecified place in unspecified non-institutional (private) residence as the place of occurrence of the external cause; F41.9 Anxiety disorder, unspecified; R74.0 Nonspecific elevation of levels of transaminase and lactic acid dehydrogenase [LDH]; F32.9 Major depressive disorder, single episode, unspecified; R00.0 Tachycardia, unspecified; E87.6 Hypokalemia; M25.50 Pain in unspecified joint
CPT/HCPCS: 1NP; 86618; 36415; 36592; 71046; 80307; 82436; 86431; 93005; 93010; 93306; 96374; 96375; 99233; 99291; G0480; J1644; J3490

== ENCOUNTER 2017-12-10 11:47 | Emergency (ER) | payer OTHER ==
[~2017-12-10] VITALS: Ht 188 cm; Wt 142.9 kg
[~2017-12-10 11:47] MED LIST changes: +ASPIRIN EC81 M1 PO; +ATIVAN0.5 M1 PO; +ATORVASTATIN CA40 M1 PO; +B-1100 MG PO; +FLUTICASONE PRO16 GM NASB; +HYDROCHLOROTH12.5 M2 PO; +LABETALOL HCL100 M1 PO; +LISINOPRIL10 M1 PO; +MULTIVITAMINS1 EAC9 PO; +ONE-TABLET-DAI1 EACH PO
[2017-12-10 12:20] LABS: ABSOLUTE BASOPHIL COUNT 0.1 /CUMM (0.0-0.2); ABSOLUTE EOSINOPHIL COUNT 0.1 /CUMM (0.0-0.7); ABSOLUTE GRANULOCYTE CT 5.4 /CUMM (1.4-6.5); ABSOLUTE LYMPH COUNT 0.5 /CUMM (1.2-3.4); ABSOLUTE MONOCYTE COUNT 0.4 /CUMM (0.10-0.60); BASOPHIL % 0.8 % (0.0-2.0); EOSINOPHIL % 1.3 % (0-5); HEMATOCRIT 39.1 % (42-52); MEAN CORPUSCULAR HGB 28.8 PG (27.0-31.0); MEAN CORPUSCULAR HGB CONC 34.2 G/DL (33.0-37.0); MEAN CORPUSCULAR VOLUME 84.2 FL (80.0-94.0); MEAN PLATELET VOLUME 8.8 FL (7.4-10.4); PLATELET COUNT 306 /CUMM (130-400); RBC DISTRIBUTION WIDTH 12.7 % (11.5-14.5); RED BLOOD CELL CT 4.64 /CUMM (4.70-6.10); WHITE BLOOD CELL COUNT 6.5 /CUMM (4.8-10.8)
[2017-12-10 12:28] LABS: PT 12.5 SEC (9.4-12.5); PTT 31 SEC (25-37)
[2017-12-10 12:36] LABS: GRANULOCYTE % 83.4 % (42.2-75.2)
--- NOTE | 2017-12-10 14:41 | ED GENERAL ADULT ---
History of Present Illness General Chief Complaint: Low Back Pain/Injury Stated Complaint: LBP Source: patient, family Exam Limitations: no limitations Vital Signs & Intake/Output Vital Signs & Intake/Output Vital Signs Date Time Temp Pulse Resp B/P B/P Pulse O2 O2 Flow FiO2 Mean Ox Delivery Rate 12/10 1657 102 17 182/90 96 Nasal 2.0L Cannula 12/10 1541 98.8 114 20 194/126 12/10 1151 98.8 114 20 194/126 99 Room Air Allergies Coded Allergies: NO KNOWN ALLERGIES (NONE 12/10/17) Reconcile Medications Aspirin (Ecotrin*) 81 MG TABLET.DR 1 TAB PO DAILY HEART Atorvastatin Calcium 40 MG TABLET 1 TAB PO DAILY HEART Fluticasone Propionate 50 MCG/ACTUATION SPRAY.SUSP 2 SPRAY [place] DAILY PRN ALLERGIES (Reported) Hydrochlorothiazide 12.5 MG TABLET 1 TAB PO DAILY HTN Hydromorphone HCl (Dilaudid) 2 MG TABLET 2 TAB PO Q6P PRN PAIN Ibuprofen 600 MG TABLET 1 TAB PO Q6P PRN PAIN with food Labetalol HCl 100 MG TABLET 1 TAB PO BID HTN Lisinopril 10 MG TABLET 1 TAB PO DAILY HTN Lorazepam (Ativan) 0.5 MG TABLET 1 TAB PO AD TAPER TAKE THREE TABS 08/21/17 THEN TWO TABS 08/22/17 THEN STOP Methylprednisolone. (Medrol) 4 MG TAB.DS.PK 1 DP PO AD PAIN 6 on day 1 then reduce by one tablet daily until gone Multiple Vitamin (Multivitamins) 1 EACH TABLET 1 TAB PO DAILY SUPPLEMENT ( Reported) Multivitamin ([id number]) 1 EACH TABLET 1 TAB PO DAILY SUPPLEMENT Thiamine HCl (B-1) 100 MG TABLET 1 TAB PO DAILY SUPPLEMENT Triage Note: PT TO ED C/O UPPER BACK PAIN RADIATING DOWN B/L ARMS ON AND OFF SINCE JANUARY. WORSE YESTERDAY. DENIES INJURY/FALLING. HAS BEEN TAKING ALEVE WITH ON RELIEF. Triage Nurses Notes Reviewed? yes HPI: Pt is a 32 y/o M PMHx ETOH abuse, HTN, BRIGITTE, presenting with polyarthropathies since January. Pt states that he has lower back, bilat. knee, hip, shoulder and hand pain & stiffness. Pt states pain is exacerbated with movement, and at its worst in the morning when he wakes up. Pt states that last night while sitting on the couch, his knees "locked up" and he was unable to stand. Pt has been taking naproxen without relief. Pt states most recent drink was 2 rum & cokes this past Saturday. Pt admits to occasional eye pain but denies scleral injection, admits to decreased ROM and sitffness of multiple joints. Pt is unsure of any family Hx as he is adopted. Patient has previously been worked up for similar symptoms, found to have a negative Lyme, negative Rh. Inflammatory markers were positive at that time. According to Dr. Rich, the patient was lost to follow- up for further lab work. (Chalino Amador MD) Past History Travel History Traveled to [place] past 21 day No Medical History Any Pertinent Medical History? 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 No (Chalino Amador MD) Review of Systems Review of Systems Constitutional: Denies: see HPI. Respiratory: Denies: see HPI. Cardiovascular: Denies: see HPI. GI: Denies: see HPI. Musculoskeletal: Reports: see HPI. Comments No report of fever, chills, joint heat/erythema. Patient denies any dysuria or penile discharge. (Chalino Amador MD) Physical Exam Physical Exam General Appearance: well developed/nourished, alert, awake Head: atraumatic, normal appearance Eyes: Bilateral: normal appearance. Neck: no midline tenderness Respiratory: normal breath sounds Cardiovascular: regular rate/rhythm Back: decreased range of motion, no vertebral tenderness Extremities: Edema noted of bilateral hands. Radial pulses 2+, Decreased ROm of bilateral shoulders and hips due to pain Neurologic/Psych: awake, alert, oriented x 3 Comments: Patient has edematous joints, bilateral, equal. Bilateral shoulders, wrists, hips, knees, ankles seem to be involved. There is no overlying cellulitis, no excess warmth or tenderness to palpation. The only skin changes noted is some mild hives to bilateral elbows. Core Measures ACS in differential dx? No CVA/TIA Diagnosis: No Sepsis Present: No Sepsis Focused Exam Completed? No (Perry MEEK,Chalino) Progress Differential Diagnoses I considered the following diagnoses in my evaluation of the patient: Rheumatologic process such as ankylosing spondylitis/some other seronegative spondyloarthropathy, low suspicion for gonorrhea given history of 10 months of symptoms, low suspicion also for Lyme disease given history of negative testing in the setting of similar symptoms. Low suspicion for septic arthritis. Low suspicion also for primary muscular process such as dermatomyositis or polymyalgia rheumatica. Doubt toxic process. Blood pressure likely elevated secondary to pain. Patient does have history of primary hypertension. Very low suspicion for thoracic aortic disease/dissection patient with 10 months of symptoms and reproducible pain in multiple symmetric swollen joints. Plan of Care: Orders Procedure Date/time Status Add-on Test (ER Only) 12/10 1636 Active C-REACTIVE PROTEIN 12/10 1525 Complete RHEUMATOID FACTOR 12/10 1440 Complete HIGH SENSITIVITY CRP 12/10 1440 Complete WESTERGREN SED RATE 12/10 1440 Complete URINALYSIS 12/10 1231 Active LYME TITRE 12/10 1212 Active TROPONIN LEVEL 12/10 1155 Complete PARTIAL THROMBOPLASTIN TIME 12/10 1155 Complete PROTHROMBIN TIME 12/10 1155 Complete COMPREHENSIVE METABOLIC PANEL 12/10 1155 Complete CBC WITHOUT DIFFERENTIAL 12/10 1155 Complete EKG 12/10 1155 Active Laboratory Tests 12/10/17 1525: C-Reactive Prot, Quant 6.8 H, C-React Prot High Sens > 15.0 H, ESR Westergren 94 H, Rheum Factor Semi-Quant 10.9 12/10/17 1443: Rheum Factor Semi-Quant Cancelled 12/10/17 1212: Anion Gap 9, Estimated GFR > 60, BUN/Creatinine Ratio 21.7, Glucose 108 H, Calcium 9.0, Total Bilirubin 1.3, AST 70 H, ALT 83 H, Alkaline Phosphatase 89, Troponin I < 0.01, Total Protein 8.3 H, Albumin 3.8, Globulin 4.5 H, Albumin/ Globulin Ratio 0.8 L, PT 12.5, INR 1.15, APTT 31, CBC w Diff NO MAN DIFF REQ, RBC 4.64 L, MCV 84.2, MCH 28.8, MCHC 34.2, RDW 12.7, MPV 8.8, Gran % 83.4 H, Lymphocytes % 7.7 L, Monocytes % 6.8, Eosinophils % 1.3, Basophils % 0.8, Absolute Granulocytes 5.4, Absolute Lymphocytes 0.5 L, Absolute Monocytes 0.4, Absolute Eosinophils 0.1, Absolute Basophils 0.1, Lyme Disease Antibody Pending Labs are consistent with rheumatologic process, however are very nonspecific. There is no leukocytosis noted. Pain is well controlled following several doses of IV Dilaudid. Patient able to ambulate without difficulty. He will follow-up with Dr. Trammell of rheumatology. His mother drives him home and he is provided with return precautions and discharge instructions. Will try Medrol Dosepak for symptom control, in addition to ibuprofen, 600 mg every 6 hours and Dilaudid as needed for breakthrough pain. Blood pressure improves following administration of pain medication and IV labetalol 1. Initial ED EKG: none (Perry MEEK,Chalino) Departure Departure Time of Disposition: 1755 Disposition: HOME OR SELF CARE Condition: Stable Clinical Impression Primary Impression: Polyarthralgia Referrals: Layla MEEK,Gisele Vásquez (PCP/Family) Additional Instructions: Thank you for coming to [facility] today. As we discussed, the cause of your pain remains unclear. It seems most likely that this is due to a rheumatologic or autoimmune process. For this reason, I recommend that you follow-up with a ep specialist, in this case Dr. Trammell has been recommended. Your primary doctor is aware, and should follow with her in the meantime. Please return to the emergency department if your pain becomes difficult to control, or you develop any new or worsening symptoms such as fever, chills, nausea, vomiting, headache, or anything else which is concerning. Please take the steroid Dosepak as prescribed, in addition to the ibuprofen for pain. You can take the hydromorphone as needed for breakthrough pain when the ibuprofen is not adequate. Please do not mix the hydromorphone with any sedating medications such as benzodiazepines, or alcohol. Please do not drive while taking the hydromorphone. Departure Forms: Customer Survey General Discharge Information Prescriptions: Current Visit Scripts Methylprednisolone. (Medrol) 1 DP PO AD #1 DP 6 on day 1 then reduce by one tablet daily until gone Hydromorphone HCl (Dilaudid) 2 TAB PO Q6P PRN PAIN #8 TAB Ibuprofen 1 TAB PO Q6P PRN PAIN #20 TAB with food (Chalino Amador MD) Resident Co-Sign Statement Statement: ED Attending supervision documentation- [] I saw and evaluated the patient. I have also reviewed all the pertinent lab results and diagnostic results. I agree with the findings and the plan of care as documented in the Resident's documentation. [X] I have reviewed the ED Record and agree with the Resident's documentation. [] Additions or exceptions (if any) to the Resident's note and plan are summarized below: [] (Landy MEEK,Samir Rod) Critical Care Note Critical Care Note Critical Care Time: non-applicable (Chalino Amador MD)
--- NOTE | 2017-12-10 15:44 | RADIOLOGY REPORT ---
EXAMINATION: CR THORACIC SPINE CR LUMBOSACRAL SPINE CLINICAL INFORMATION: Joint/back pain. Presumptive diagnosis of ankylosing spondylitis. COMPARISON: Lumbar spine films dated 10/13/2014. TECHNIQUE: 3 views of the thoracic spine were obtained. 2 views of the lumbosacral spine were obtained. FINDINGS: Thoracic spine: Normal alignment. No acute fracture or dislocation. No paraspinal soft tissue changes are noted. No significant ossification along the anterior longitudinal ligament is seen to suspect ankylosing spondylitis. Lumbosacral spine: Normal alignment. No acute fracture or dislocation. Mild vertebral endplate spurring at the L4-5 level with mild narrowing of the disc space. There is also mild narrowing at the lumbosacral junction. Moderate facet arthropathy is seen at L4-5 and L5-S1. Compared to the prior exam, the mild degenerative changes in the lower lumbar spine have progressed. No evidence of ankylosing spondylitis is seen. IMPRESSION: 1. No plain film evidence of ankylosing spondylitis in the thoracic or lumbosacral spine. 2. Mild degenerative disc disease and facet arthropathy in the lower lumbar spine, slightly progressed when compared to the prior study.
[2017-12-10] MEDS ORDERED: IBUPROFEN600 M1 PO (17:59)
[2017-12-10] MEDS ORDERED: MEDROL4 M2 PO (17:59)
[2017-12-10] MEDS ORDERED: DILAUDID2 M1 PO (17:59)
[2017-12-10 19:22] VITALS: BP 166/98
== END 2017-12-10 19:24 ==
LOC: ERH 11:47
PROVIDERS: Physician Assistant Medical
DX: M25.50 Pain in unspecified joint (principal)
CPT/HCPCS: 86618; 72070; 72100; 86431; 93005; 93010; 96374; 96375; 96376; J1885